=== PATIENT | female | born 1960 | race African-American/Black ===

== ENCOUNTER 2021-05-13 01:17 | Inpatient (IN) ==
[2021-05-13] MEDS ORDERED: ONDANSETRON 4 MG/2 ML VIAL IV STA (02:12)
[2021-05-13 02:41] LABS: Hemoglobin 15.2 GM/DL (12.0-16.0); Immature Granulocytes % 0.2 %; Immature Granulocytes Absolute 0.01 #; Lymphocytes # 0.9 10*3/uL (1.4-4.0); Lymphocytes % 14.5 % (21.3-54.2); Mean Corpuscular Volume 84.4 FL (87-102); Mean Platelet Volume 12.9 FL (9.6-12.0); Monocytes % 7.7 % (1.7-12.7); NRBC # 0.03 10*3/uL; Neutrophils % 77.6 % (38.7-73.9); Platelet Count 155 T/CUMM (130-400); Red Blood Count 5.45 MC/CUMM (3.8-5.5); Red Cell Distribution Width 16.9 % (9.3-17.3); White Blood Count 5.9 T/CUMM (4-12)
[2021-05-13 02:52] LABS: Bilirubin,Urine Negative (Negative); Blood, Urine Negative (Negative); Glucose,Urine (UA) Negative (Negative); Hyaline Casts,Urine 13 /LPF (0-3); Ketones,Urine Negative (Negative); Mucus,Urine Occasional /LPF (Occasional); Nitrite,Urine Negative (Negative); Protein,Urine 100 MG/DL; RBC,Urine 1 /HPF (0-4); Squamous Epithelial Cell,Urine Occasional /HPF (0-10); Urine Appearance Slightly Hazy (Clear); Urine Color Yellow (Yellow); Urine Specific Gravity 1.018 (1.001-1.035)
[2021-05-13 03:01] LABS: Bilirubin,Total 0.8 MG/DL (0.20-1.00); Calcium 9.3 MG/DL (8.5-10.1); Potassium 5.2 MMOL/L (3.5-5.1); Total Protein 7.3 G/DL (6.4-8.2)
[2021-05-13] MEDS ORDERED: SODIUM CHLORIDE 0.9% 500 ML IV STA (03:06)
[2021-05-13] MEDS ORDERED: FUROSEMIDE 40 MG/4 ML VIAL IV STA (03:26)
[2021-05-13] MEDS ORDERED: ACETAMINOPHEN 325 MG TABLET PO PRN (04:29)
[2021-05-13] MEDS ORDERED: GLUCAGON 1 MG VIAL IM PRN (04:29)
[2021-05-13] MEDS ORDERED: MORPHINE 2 MG/1 ML SYRINGE IV PRN (04:29)
[2021-05-13] MEDS ORDERED: DEXTROSE 50% 25 GM/50 ML VIAL IV PRN (04:29)
[2021-05-13] MEDS ORDERED: hydrALAZINE 20 MG/1 ML VIAL IV PRN (04:29)
[2021-05-13] MEDS ORDERED: CALCIUM CARBONATE CHEW 500 MG TABLET PO PRN (04:29)
[2021-05-13] MEDS ORDERED: diphenhydrAMINE CAP 25 MG CAPSULE PO PRN (04:29)
[2021-05-13] MEDS ORDERED: SODIUM CHLORIDE 0.9% 1,000 ML IV SCH (06:30)
[2021-05-13] MEDS ORDERED: ENOXAPARIN 60 MG/0.6 ML SYRINGE SUBCUT STA (07:30)
[2021-05-13] MEDS ORDERED: NITROGLYCERIN SL 0.4 MG TABLET SL PRN (08:33)
[2021-05-13] MEDS ORDERED: ASCORBIC ACID 500 MG TABLET PO SCH (09:00)
[2021-05-13] MEDS ORDERED: CLOPIDOGREL 75 MG TABLET PO SCH (09:00)
[2021-05-13] MEDS ORDERED: CLOPIDOGREL 75 MG TABLET ONE (09:47)
[2021-05-13] MEDS: ASPIRIN EC 81 MG TABLET PO SCH (09:50)
[2021-05-13] MEDS: ONDANSETRON 4 MG/2 ML VIAL IV PRN (10:05)
[2021-05-13] MEDS: METOPROLOL TARTRATE 25 MG TABLET PO SCH ×2 (10:13→22:53)
[2021-05-13] MEDS ORDERED: SODIUM CHLORIDE 0.9% 250 ML IV ONE (10:39)
[2021-05-13] MEDS: PROMETHAZINE 25 MG/1 ML VIAL IM PRN (12:45)
[2021-05-13] MEDS ORDERED: SODIUM CHLORIDE 0.9% 250 ML IV STA (15:06)
[2021-05-13] MEDS: metroNIDAZOLE INJ 500 MG/100 ML PREMIX IV SCH ×2 (18:05→19:05)
[2021-05-13] MEDS: VANCOMYCIN 50 MG/ML 60 ML/BOTTLE PO SCH (18:06)
[2021-05-13] MEDS: ATORVASTATIN 40 MG TABLET PO SCH (22:53)
[2021-05-13] MEDS: ESCITALOPRAM 10 MG TABLET PO SCH (22:53)
[2021-05-13] MEDS: APIXABAN 2.5 MG TABLET PO SCH (22:53)
[2021-05-13] MEDS: ASCORBIC ACID 500 MG TABLET PO SCH ×2 (22:54→23:00)
[2021-05-14] MEDS: PROMETHAZINE 25 MG/1 ML VIAL IM PRN ×2 (00:20→05:00)
[2021-05-14] MEDS: VANCOMYCIN 50 MG/ML 60 ML/BOTTLE PO SCH ×4 (01:00→17:31)
[2021-05-14] MEDS ORDERED: HYOSCYAMINE 0.125 MG TABLET PO ONE (02:47)
[2021-05-14 05:01] LABS: Basophils % 0.1 % (0.0-0.8); Eosinophils % 0.1 % (0.00-10.9); Hematocrit 46.4 VOL% (35.7-47.0); Hemoglobin 14.9 GM/DL (12.0-16.0); Immature Granulocytes % 0.8 %; Immature Granulocytes Absolute 0.06 #; Lymphocytes % 26.3 % (21.3-54.2); Mean Corpuscular HGB Conc 32.1 GM/DL (32-36); Mean Corpuscular Volume 83.8 FL (87-102); Mean Platelet Volume 13.2 FL (9.6-12.0); NRBC # 0.04 10*3/uL; Neutrophils % 58.7 % (38.7-73.9); Platelet Count 139 T/CUMM (130-400); Red Blood Count 5.54 MC/CUMM (3.8-5.5); Red Cell Distribution Width 16.5 % (9.3-17.3); White Blood Count 7.6 T/CUMM (4-12)
[2021-05-14 05:27] LABS: Albumin 3.6 G/DL (3.4-5.0); Bilirubin,Total 0.9 MG/DL (0.20-1.00); Calcium 8.2 MG/DL (8.5-10.1); Potassium 4.7 MMOL/L (3.5-5.1); Total Protein 6.5 G/DL (6.4-8.2)
[2021-05-14 05:30] LABS: Acanthocytes Few; Hypochromasia 1+; Microcytosis 1+; Ovalocytes Slight
[2021-05-14 05:31] LABS: Platelet Estimate Adequate
[2021-05-14 05:40] LABS: Risk Ratio 2.07; VLDL Cholesterol 15.4 MG/DL
[2021-05-14 05:46] LABS: Calcium 8.2 MG/DL (8.5-10.1); Potassium 4.7 MMOL/L (3.5-5.1)
[2021-05-14] MEDS ORDERED: SODIUM CHLORIDE 0.9% 1,000 ML IV SCH (08:00)
[2021-05-14] MEDS: metroNIDAZOLE INJ 500 MG/100 ML PREMIX IV SCH ×2 (09:43→16:51)
[2021-05-14] MEDS: ASCORBIC ACID 500 MG TABLET PO SCH ×2 (09:44→22:17)
[2021-05-14] MEDS: METOPROLOL TARTRATE 25 MG TABLET PO SCH ×2 (09:44→22:17)
[2021-05-14] MEDS: ASPIRIN EC 81 MG TABLET PO SCH (09:44)
[2021-05-14] MEDS: APIXABAN 2.5 MG TABLET PO SCH ×2 (09:44→22:18)
[2021-05-14] MEDS: PROMETHAZINE INJ 12.5 MG in SODIUM CHLORIDE 0.9% 50 ML IV PRN ×2 (12:41→22:22)
[2021-05-14] MEDS ORDERED: SODIUM CHLORIDE 0.9% 500 ML IV ONE (17:58)
[2021-05-14] MEDS ORDERED: SCOPOLAMINE 1.5 MG PATCH TRANSDERM ONE (20:48)
[2021-05-14] MEDS: ESCITALOPRAM 10 MG TABLET PO SCH (22:18)
[2021-05-14] MEDS: ATORVASTATIN 40 MG TABLET PO SCH (22:18)
[2021-05-15] MEDS: VANCOMYCIN 50 MG/ML 60 ML/BOTTLE PO SCH ×4 (00:31→17:27)
[2021-05-15] MEDS: metroNIDAZOLE INJ 500 MG/100 ML PREMIX IV SCH ×3 (00:32→17:24)
[2021-05-15 03:07] LABS: Basophils % 0.3 % (0.0-0.8); Eosinophils % 0.1 % (0.00-10.9); Hematocrit 50.3 VOL% (35.7-47.0); Hemoglobin 15.5 GM/DL (12.0-16.0); Immature Granulocytes % 1.1 %; Lymphocytes # 2.3 10*3/uL (1.4-4.0); Lymphocytes % 25.4 % (21.3-54.2); Mean Corpuscular HGB Conc 30.8 GM/DL (32-36); Mean Corpuscular Volume 88.7 FL (87-102); Mean Platelet Volume 12.6 FL (9.6-12.0); Monocytes % 18.3 % (1.7-12.7); NRBC # 0.14 10*3/uL; Neutrophils % 54.8 % (38.7-73.9); Platelet Count 157 T/CUMM (130-400); Red Blood Count 5.67 MC/CUMM (3.8-5.5); Red Cell Distribution Width 17.5 % (9.3-17.3); White Blood Count 8.9 T/CUMM (4-12)
[2021-05-15 03:24] LABS: Calcium 8.3 MG/DL (8.5-10.1); Osmolality,Calculated 278.1 MOS/KG (273-304)
[2021-05-15 03:31] LABS: Albumin 3.5 G/DL (3.4-5.0); Bilirubin,Direct 0.73 MG/DL (0.0-0.20); Bilirubin,Indirect 0.8 MG/DL (0.0-1.0); Bilirubin,Total 1.5 MG/DL (0.20-1.00); Total Protein 6.9 G/DL (6.4-8.2)
[2021-05-15 03:53] LABS: Lymphocytes 28 % (20-55); Segmented Neutrophils 61 % (50-85); Total Cells Counted 100
[2021-05-15 03:54] LABS: Platelet Estimate Normal
[2021-05-15] MEDS: PROMETHAZINE INJ 12.5 MG in SODIUM CHLORIDE 0.9% 50 ML IV PRN ×3 (08:28→20:40)
[2021-05-15] MEDS: LACTATED RINGERS 1,000 ML IV SCH ×2 (08:30→17:27)
[2021-05-15] MEDS: METOPROLOL TARTRATE 25 MG TABLET PO SCH (09:33)
[2021-05-15] MEDS: APIXABAN 2.5 MG TABLET PO SCH ×2 (09:33→20:27)
[2021-05-15] MEDS: ASPIRIN EC 81 MG TABLET PO SCH (09:33)
[2021-05-15] MEDS: ASCORBIC ACID 500 MG TABLET PO SCH ×2 (09:33→20:26)
[2021-05-15] MEDS ORDERED: CLORAZEPATE 3.75 MG TABLET PO PRN (09:37)
[2021-05-15] MEDS ORDERED: METOPROLOL TARTRATE 5 MG/5 ML VIAL IV ONE (09:40)
[2021-05-15] MEDS: METOPROLOL TARTRATE 50 MG TABLET PO SCH (20:27)
[2021-05-15] MEDS: ESCITALOPRAM 10 MG TABLET PO SCH (20:27)
[2021-05-15] MEDS ORDERED: FUROSEMIDE 20 MG/2 ML VIAL IV ONE (21:51)
[2021-05-16 00:10] LABS: Bilirubin,Urine Negative (Negative); Blood, Urine Small mg/dL (Negative); Glucose,Urine (UA) Negative (Negative); Granular Casts,Urine 3 /LPF (0-1); Hyaline Casts,Urine 24 /LPF (0-3); Ketones,Urine 5 mg/dL (Negative); Mucus,Urine Occasional /LPF (Occasional); Nitrite,Urine Negative (Negative); Protein,Urine 100 MG/DL; RBC,Urine 37 /HPF (0-4); Squamous Epithelial Cell,Urine Occasional /HPF (0-10); Urine Appearance CLEAR (Clear); Urine Color Amber (Yellow); Urine Specific Gravity 1.024 (1.001-1.035); Urine Urobilinogen < 2.0 EU/DL (0.2-1.0)
[2021-05-16] MEDS: VANCOMYCIN 50 MG/ML 60 ML/BOTTLE PO SCH ×4 (01:06→17:42)
[2021-05-16] MEDS: metroNIDAZOLE INJ 500 MG/100 ML PREMIX IV SCH ×2 (01:43→10:05)
[2021-05-16] MEDS: PROMETHAZINE INJ 12.5 MG in SODIUM CHLORIDE 0.9% 50 ML IV PRN ×2 (04:16→10:33)
[2021-05-16 04:30] LABS: Basophils % 0.1 % (0.0-0.8); Hematocrit 49.2 VOL% (35.7-47.0); Hemoglobin 15.4 GM/DL (12.0-16.0); Immature Granulocytes % 1.2 %; Immature Granulocytes Absolute 0.12 #; Lymphocytes # 1.5 10*3/uL (1.4-4.0); Lymphocytes % 15.4 % (21.3-54.2); Mean Corpuscular HGB Conc 31.3 GM/DL (32-36); Mean Corpuscular Volume 85.4 FL (87-102); Monocytes % 8.8 % (1.7-12.7); NRBC # 0.53 10*3/uL; Neutrophils % 74.5 % (38.7-73.9); Platelet Count 188 T/CUMM (130-400); Red Blood Count 5.76 MC/CUMM (3.8-5.5); Red Cell Distribution Width 17.8 % (9.3-17.3)
[2021-05-16 04:49] LABS: Calcium 8.9 MG/DL (8.5-10.1); Osmolality,Calculated 285.7 MOS/KG (273-304)
[2021-05-16] MEDS: LACTATED RINGERS 1,000 ML IV SCH ×2 (05:19→13:24)
[2021-05-16] MEDS: METOPROLOL TARTRATE 50 MG TABLET PO SCH ×2 (08:57→21:50)
[2021-05-16] MEDS: APIXABAN 2.5 MG TABLET PO SCH ×2 (08:57→21:50)
[2021-05-16] MEDS: ASPIRIN EC 81 MG TABLET PO SCH (08:57)
[2021-05-16] MEDS: ASCORBIC ACID 500 MG TABLET PO SCH ×2 (08:57→21:49)
[2021-05-16] MEDS ORDERED: FUROSEMIDE 40 MG/4 ML VIAL IV ONE (13:02)
[2021-05-16] MEDS: ESCITALOPRAM 10 MG TABLET PO SCH (21:49)
[2021-05-17] MEDS: LACTATED RINGERS 1,000 ML IV SCH (01:30)
[2021-05-17] MEDS: VANCOMYCIN 50 MG/ML 60 ML/BOTTLE PO SCH ×4 (01:30→22:34)
[2021-05-17 06:36] LABS: Basophils % 0.1 % (0.0-0.8); Hematocrit 50.1 VOL% (35.7-47.0); Hemoglobin 15.8 GM/DL (12.0-16.0); Immature Granulocytes Absolute 0.18 #; Lymphocytes # 1.7 10*3/uL (1.4-4.0); Lymphocytes % 9.2 % (21.3-54.2); Mean Corpuscular HGB Conc 31.5 GM/DL (32-36); Mean Corpuscular Volume 86.7 FL (87-102); Mean Platelet Volume 12.7 FL (9.6-12.0); Monocytes % 8.7 % (1.7-12.7); NRBC # 1.28 10*3/uL; Platelet Count 186 T/CUMM (130-400); Red Blood Count 5.78 MC/CUMM (3.8-5.5); Red Cell Distribution Width 18.6 % (9.3-17.3); White Blood Count 17.9 T/CUMM (4-12)
[2021-05-17 07:14] LABS: Calcium 8.8 MG/DL (8.5-10.1); Osmolality,Calculated 291.7 MOS/KG (273-304); Potassium 5.3 MMOL/L (3.5-5.1)
[2021-05-17] MEDS: ASPIRIN EC 81 MG TABLET PO SCH (08:25)
[2021-05-17] MEDS: ASCORBIC ACID 500 MG TABLET PO SCH ×2 (08:25→22:31)
[2021-05-17] MEDS: APIXABAN 2.5 MG TABLET PO SCH ×2 (08:25→22:32)
[2021-05-17] MEDS: METOPROLOL TARTRATE 50 MG TABLET PO SCH ×2 (08:26→22:31)
[2021-05-17] MEDS: ONDANSETRON 4 MG/2 ML VIAL IV PRN ×2 (08:30→21:06)
[2021-05-17 09:39] LABS: Albumin 3.9 G/DL (3.4-5.0); Bilirubin,Direct 0.89 MG/DL (0.0-0.20); Bilirubin,Indirect 0.7 MG/DL (0.0-1.0); Bilirubin,Total 1.6 MG/DL (0.20-1.00)
[2021-05-17] MEDS: DOBUTamine 500 MG/250 ML PREMIX IV SCH (11:58)
[2021-05-17] MEDS: FUROSEMIDE 40 MG TABLET PO SCH (11:59)
[2021-05-17] MEDS: metOLazone 2.5 MG TABLET PO SCH (11:59)
[2021-05-17 13:55] LABS: Calcium 8.8 MG/DL (8.5-10.1); Ferritin 4054.1 ng/ml (8-252); Potassium 5.6 MMOL/L (3.5-5.1)
[2021-05-17 15:00] LABS: Hepatitis B Core IgM Quant 0.14 Index; Hepatitis B Surface Ag Quant < 0.10 Index; Hepatitis B Surface Ag Result Non-Reactive (NonReactive); Hepatitis C Virus Ab Quant 0.05 Index; Hepatitis C Virus Ab Result Non-Reactive (NonReactive)
[2021-05-17] MEDS: ESCITALOPRAM 10 MG TABLET PO SCH (22:32)
[2021-05-18] MEDS: VANCOMYCIN 50 MG/ML 60 ML/BOTTLE PO SCH ×4 (01:27→17:46)
[2021-05-18 04:26] LABS: Basophils % 0.1 % (0.0-0.8); Eosinophils % 0.1 % (0.00-10.9); Hematocrit 42.9 VOL% (35.7-47.0); Immature Granulocytes % 0.6 %; Immature Granulocytes Absolute 0.08 #; Lymphocytes # 1.1 10*3/uL (1.4-4.0); Lymphocytes % 8.7 % (21.3-54.2); Mean Corpuscular HGB Conc 32.6 GM/DL (32-36); Mean Corpuscular Volume 84.6 FL (87-102); Monocytes % 7.8 % (1.7-12.7); NRBC # 0.76 10*3/uL; Neutrophils % 82.7 % (38.7-73.9); Platelet Count 165 T/CUMM (130-400); Red Blood Count 5.07 MC/CUMM (3.8-5.5); White Blood Count 12.9 T/CUMM (4-12)
[2021-05-18 04:44] LABS: Calcium 8.6 MG/DL (8.5-10.1); Osmolality,Calculated 295.5 MOS/KG (273-304); Potassium 3.9 MMOL/L (3.5-5.1)
[2021-05-18 04:58] LABS: Albumin 3.5 G/DL (3.4-5.0); Bilirubin,Direct 0.75 MG/DL (0.0-0.20); Bilirubin,Indirect 0.6 MG/DL (0.0-1.0); Bilirubin,Total 1.3 MG/DL (0.20-1.00)
[2021-05-18] MEDS: ASPIRIN EC 81 MG TABLET PO SCH (08:24)
[2021-05-18] MEDS: FUROSEMIDE 40 MG TABLET PO SCH (08:25)
[2021-05-18] MEDS: ASCORBIC ACID 500 MG TABLET PO SCH ×2 (08:25→21:57)
[2021-05-18] MEDS: metOLazone 2.5 MG TABLET PO SCH (08:25)
[2021-05-18] MEDS: APIXABAN 2.5 MG TABLET PO SCH ×2 (08:25→21:57)
[2021-05-18] MEDS: METOPROLOL TARTRATE 50 MG TABLET PO SCH ×2 (08:25→21:57)
[2021-05-18] MEDS: DOBUTamine 500 MG/250 ML PREMIX IV SCH (12:50)
[2021-05-18] MEDS: ESCITALOPRAM 10 MG TABLET PO SCH (21:57)
[2021-05-19] MEDS: VANCOMYCIN 50 MG/ML 60 ML/BOTTLE PO SCH ×4 (01:06→17:01)
[2021-05-19 07:36] LABS: Basophils % 0.1 % (0.0-0.8); Eosinophils # 0.1 10*3/uL (0.0-0.87); Eosinophils % 0.8 % (0.00-10.9); Hematocrit 41.3 VOL% (35.7-47.0); Hemoglobin 13.6 GM/DL (12.0-16.0); Immature Granulocytes % 0.9 %; Immature Granulocytes Absolute 0.08 #; Lymphocytes # 0.9 10*3/uL (1.4-4.0); Lymphocytes % 9.6 % (21.3-54.2); Mean Corpuscular HGB Conc 32.9 GM/DL (32-36); Mean Corpuscular Volume 82.8 FL (87-102); Monocytes % 7.9 % (1.7-12.7); NRBC # 0.19 10*3/uL; Neutrophils % 80.7 % (38.7-73.9); Platelet Count 137 T/CUMM (130-400); Red Blood Count 4.99 MC/CUMM (3.8-5.5); Red Cell Distribution Width 18.3 % (9.3-17.3); White Blood Count 8.9 T/CUMM (4-12)
[2021-05-19 07:53] LABS: Albumin 3.1 G/DL (3.4-5.0); Bilirubin,Direct 0.84 MG/DL (0.0-0.20); Bilirubin,Total 1.8 MG/DL (0.20-1.00); Calcium 8.7 MG/DL (8.5-10.1); Osmolality,Calculated 282.8 MOS/KG (273-304); Potassium 3.1 MMOL/L (3.5-5.1); Total Protein 5.7 G/DL (6.4-8.2)
[2021-05-19] MEDS: ASPIRIN EC 81 MG TABLET PO SCH (08:49)
[2021-05-19] MEDS: METOPROLOL TARTRATE 50 MG TABLET PO SCH ×2 (08:49→11:09)
[2021-05-19] MEDS: ASCORBIC ACID 500 MG TABLET PO SCH ×2 (08:49→21:15)
[2021-05-19] MEDS: APIXABAN 2.5 MG TABLET PO SCH ×2 (08:50→21:15)
[2021-05-19] MEDS: FUROSEMIDE 40 MG TABLET PO SCH (08:52)
[2021-05-19] MEDS: DOBUTamine 500 MG/250 ML PREMIX IV SCH (10:54)
[2021-05-19] MEDS ORDERED: POTASSIUM CHLORIDE 20 MEQ TABLET PO ONE (11:11)
[2021-05-19] MEDS: metOLazone 2.5 MG TABLET PO SCH (13:06)
[2021-05-19] MEDS: SPIRONOLACTONE 50 MG TABLET PO SCH (13:06)
[2021-05-19] MEDS: ESCITALOPRAM 10 MG TABLET PO SCH (21:15)
[2021-05-19] MEDS: METOPROLOL TARTRATE 25 MG TABLET PO SCH (21:15)
[2021-05-20] MEDS: VANCOMYCIN 50 MG/ML 60 ML/BOTTLE PO SCH ×3 (00:29→11:34)
[2021-05-20 04:14] LABS: Eosinophils # 0.1 10*3/uL (0.0-0.87); Eosinophils % 1.1 % (0.00-10.9); Hematocrit 44.2 VOL% (35.7-47.0); Hemoglobin 14.2 GM/DL (12.0-16.0); Immature Granulocytes % 0.5 %; Immature Granulocytes Absolute 0.04 #; Lymphocytes % 13.1 % (21.3-54.2); Mean Corpuscular HGB Conc 32.1 GM/DL (32-36); Mean Corpuscular Volume 84.8 FL (87-102); Mean Platelet Volume 12.5 FL (9.6-12.0); Monocytes % 10.7 % (1.7-12.7); NRBC # 0.07 10*3/uL; Neutrophils % 74.6 % (38.7-73.9); Platelet Count 128 T/CUMM (130-400); Red Blood Count 5.21 MC/CUMM (3.8-5.5); Red Cell Distribution Width 18.2 % (9.3-17.3); White Blood Count 7.4 T/CUMM (4-12)
[2021-05-20 04:31] LABS: Hypochromasia 1+; Microcytosis 1+; Ovalocytes Few; Polychromasia Slight
[2021-05-20 04:32] LABS: Platelet Estimate Adequate
[2021-05-20 04:40] LABS: Albumin 3.1 G/DL (3.4-5.0); Bilirubin,Direct 0.87 MG/DL (0.0-0.20); Bilirubin,Indirect 1.1 MG/DL (0.0-1.0); Calcium 8.7 MG/DL (8.5-10.1); Osmolality,Calculated 281.7 MOS/KG (273-304); Potassium 3.7 MMOL/L (3.5-5.1)
[2021-05-20] MEDS: SPIRONOLACTONE 50 MG TABLET PO SCH (09:22)
[2021-05-20] MEDS: APIXABAN 2.5 MG TABLET PO SCH (09:22)
[2021-05-20] MEDS: FUROSEMIDE 40 MG TABLET PO SCH (09:22)
[2021-05-20] MEDS: metOLazone 2.5 MG TABLET PO SCH (09:22)
[2021-05-20] MEDS: ASPIRIN EC 81 MG TABLET PO SCH (09:22)
[2021-05-20] MEDS: ASCORBIC ACID 500 MG TABLET PO SCH (09:23)
[2021-05-20] MEDS: METOPROLOL TARTRATE 25 MG TABLET PO SCH (09:23)
[2021-05-20] MEDS: DOBUTamine 500 MG/250 ML PREMIX IV SCH (09:26)
[2021-05-20 13:14] VITALS: BP 101/68
== END 2021-05-20 14:57 | disposition home health service (06) | DRG 371 ==
LOC: SUATTDRO → N.ED 01:17 → SUATTDRO 07:31 → N.EDINP 07:31 → N.TELEN 17:00
PROVIDERS: ADMIT Internal Medicine Geriatric Medicine; ATTEND Internal Medicine

== ENCOUNTER 2021-12-22 06:56 | Inpatient (IN) ==
[2021-12-22] MEDS ORDERED: FUROSEMIDE 100 MG/10 ML VIAL IV STA (07:18)
[2021-12-22 07:40] LABS: Basophils # 0.1 10*3/uL (0.0-0.2); Basophils % 0.4 % (0.0-0.8); Eosinophils % 0.1 % (0.00-10.9); Hematocrit 55.4 VOL% (35.7-47.0); Hemoglobin 17.5 GM/DL (12.0-16.0); Immature Granulocytes % 1.1 %; Immature Granulocytes Absolute 0.19 #; Lymphocytes # 2.5 10*3/uL (1.4-4.0); Lymphocytes % 13.9 % (21.3-54.2); Mean Corpuscular HGB Conc 31.6 GM/DL (32-36); Mean Corpuscular Volume 85.9 FL (87-102); Mean Platelet Volume 13.4 FL (9.6-12.0); Monocytes % 5.8 % (1.7-12.7); NRBC # 0.04 10*3/uL; Neutrophils % 78.7 % (38.7-73.9); Platelet Count 172 T/CUMM (130-400); Red Blood Count 6.45 MC/CUMM (3.8-5.5)
[2021-12-22 09:39] LABS: Calcium 9.8 MG/DL (8.5-10.1); Osmolality,Calculated 278.2 MOS/KG (273-304); Total Protein 7.9 G/DL (6.4-8.2)
[2021-12-22] MEDS ORDERED: DEXTROSE 50% 25 GM/50 ML VIAL IV STA (09:44)
[2021-12-22] MEDS ORDERED: DEXTROSE 10% 250 ML IV ONE (09:56)
[2021-12-22] MEDS ORDERED: DEXTROSE 10% 250 ML BAG IV PRN (10:19)
[2021-12-22 11:06] LABS: Hyaline Casts,Urine 27 /LPF (0-3); Mucus,Urine Occasional /LPF (Occasional); RBC,Urine 147 /HPF (0-4); Squamous Epithelial Cell,Urine Few /HPF (0-10)
[2021-12-22 11:09] LABS: Urine Appearance Clear (Clear); Urine Color Yellow (Yellow); Urine pH 5.5 (4.5-8.0)
[2021-12-22 11:10] LABS: Glucose,Urine (UA) Negative (Negative); Protein,Urine 100 MG/DL; Urine Specific Gravity 1.012 (1.001-1.035)
[2021-12-22 11:11] LABS: Bilirubin,Urine Negative (Negative); Blood, Urine Large mg/dL (Negative); Ketones,Urine Negative (Negative); Nitrite,Urine Negative (Negative); Urine Urobilinogen 0.2 EU/DL (<2.0)
[2021-12-22] MEDS ORDERED: DEXTROSE 50% 25 GM/50 ML VIAL IV PRN (11:39)
[2021-12-22] MEDS ORDERED: ZALEPLON 5 MG CAPSULE PO PRN (11:39)
[2021-12-22] MEDS ORDERED: GLUCAGON 1 MG VIAL IM PRN (11:39)
[2021-12-22] MEDS ORDERED: SODIUM BICARBONATE 50 MEQ/50 ML VIAL IV ONE (11:45)
[2021-12-22 11:52] LABS: Arterial Base Excess iSTAT -9 MMOL/L (-2.5-2.5); Arterial Bicarbonate iSTAT 14.9 MMOL/L (20-26); Arterial O2 Saturation iSTAT 98 % (95-100); Arterial PCO2 iSTAT 27 MM HG (35-48); Arterial PO2 iSTAT 107 MM HG (80-95); Arterial Total CO2 iSTAT 16 MMO/L (23-27); Arterial pH iSTAT 7.352 (7.35-7.45)
[2021-12-22] MEDS ORDERED: MORPHINE 4 MG/1 ML VIAL IV PRN (11:54)
[2021-12-22 12:40] LABS: INR 2.2; PT Patient Result 23.5 SECS (10.5-12.0)
[2021-12-22] MEDS ORDERED: AZITHROMYCIN INJ 500 MG in SODIUM CHLORIDE 0.9% 250 ML IV ONE (13:00)
[2021-12-22] MEDS ORDERED: CLORAZEPATE 3.75 MG TABLET PO PRN (13:26)
[2021-12-22] MEDS ORDERED: SODIUM BICARB INJ 50 MEQ in DEXTROSE 5% 1,000 ML IV SCH (14:00)
[2021-12-22] MEDS: ALBUTEROL/IPRATROPIUM 3 ML NEB RESP TX SCH ×2 (14:34→20:28)
[2021-12-22] MEDS ORDERED: NALOXONE 0.4 MG/ML VIAL ONE (16:50)
[2021-12-22] MEDS ORDERED: NALOXONE 0.4 MG/ML VIAL IV ONE (16:51)
[2021-12-22] MEDS ORDERED: NOREPINEPHRINE 4 MG/4 ML VIAL IV ONE ×2 (17:06→17:07)
[2021-12-22] MEDS ORDERED: VANCOMYCIN 1,000 MG VIAL ONE (17:11)
[2021-12-22] MEDS ORDERED: PIPERACILLIN/TAZOBACTAM 3,375 MG VIAL IV ONE (17:11)
[2021-12-22] MEDS ORDERED: EPINEPHrine 1 MG/10 ML SYRINGE IV ONE (17:14)
[2021-12-22] MEDS ORDERED: DOPamine 800 MG/250 ML PREMIX IV ONE (17:19)
[2021-12-22] MEDS ORDERED: SODIUM BICARBONATE 50 MEQ/50 ML SYRINGE IV ONE (17:40)
[2021-12-22 17:49] LABS: Arterial Base Excess iSTAT -16 MMOL/L (-2.5-2.5); Arterial Bicarbonate iSTAT 12.7 MMOL/L (20-26); Arterial O2 Saturation iSTAT 98 % (95-100); Arterial PCO2 iSTAT 41 MM HG (35-48); Arterial PO2 iSTAT 133 MM HG (80-95); Arterial Total CO2 iSTAT 14 MMO/L (23-27); Arterial pH iSTAT 7.105 (7.35-7.45)
[2021-12-22] MEDS ORDERED: ROCURONIUM 100 MG/10 ML VIAL IV ONE (18:17)
[2021-12-22] MEDS ORDERED: METOPROLOL TARTRATE 5 MG/5 ML VIAL IV ONE (20:19)
[2021-12-22 20:32] LABS: ABG Base Excess -6.9 MMOL/L (-2.5-2.5); ABG Oxygen Saturation 99.1 % (95-100); ABG TCO2 15.5 MMOL/L (23-27)
[2021-12-22 20:33] LABS: Basophils % 0.2 % (0.0-0.8); Eosinophils % 0.1 % (0.00-10.9); Hematocrit 51.1 VOL% (35.7-47.0); Hemoglobin 16.7 GM/DL (12.0-16.0); Immature Granulocytes % 1.3 %; Immature Granulocytes Absolute 0.19 #; Lymphocytes # 1.8 10*3/uL (1.4-4.0); Lymphocytes % 12.1 % (21.3-54.2); Mean Corpuscular HGB Conc 32.7 GM/DL (32-36); Mean Corpuscular Volume 82.3 FL (87-102); Mean Platelet Volume 12.6 FL (9.6-12.0); Monocytes % 6.7 % (1.7-12.7); NRBC # 0.09 10*3/uL; Neutrophils % 79.6 % (38.7-73.9); Platelet Count 183 T/CUMM (130-400); Red Blood Count 6.21 MC/CUMM (3.8-5.5); Red Cell Distribution Width 15.5 % (9.3-17.3); White Blood Count 15.1 T/CUMM (4-12)
[2021-12-22] MEDS: fentaNYL INJ 1,250 MCG in SODIUM CHLORIDE 0.9% 225 ML IV PRN (20:44)
[2021-12-22] MEDS: MIDAZOLAM 100 MG in SODIUM CHLORIDE 0.9% 80 ML IV PRN (20:44)
[2021-12-22] MEDS ORDERED: PROMETHAZINE 25 MG TABLET PO SCH (21:00)
[2021-12-22 21:06] LABS: Alanine Aminotransferase 264 U/L (13-56); Albumin 3.5 G/DL (3.4-5.0); Alkaline Phosphatase 116 U/L (45-117); Aspartate Amino Transferase 514 U/L (0-37); Blood Urea Nitrogen 57 MG/DL (7-18); CKMB % 4.1 %; Calcium 8.4 MG/DL (8.5-10.1); Carbon Dioxide 18 MMOL/L (21-32); Estimated Glom Filtration Rate 19 ML/MIN; Glucose 121 MG/DL (74-106); Osmolality,Calculated 284.2 MOS/KG (273-304); Potassium 5.2 MMOL/L (3.5-5.1); Sodium 134 MMOL/L (136-145); Total Protein 7.5 G/DL (6.4-8.2)
[2021-12-22] MEDS ORDERED: LORazepam 2 MG/1 ML VIAL ONE (21:07)
[2021-12-22] MEDS: LORazepam 2 MG/1 ML VIAL IV PRN (21:08)
[2021-12-22] MEDS: CISATRACURIUM 10 MG/5 ML VIAL IV PRN (21:16)
[2021-12-22] MEDS: METOPROLOL TARTRATE 25 MG TABLET PO SCH (21:50)
[2021-12-22] MEDS: APIXABAN 2.5 MG TABLET PO SCH (21:50)
[2021-12-22] MEDS: ASCORBIC ACID 500 MG TABLET PO SCH (21:51)
[2021-12-22 22:14] LABS: ABG Oxygen Saturation 99.9 % (95-100); ABG PCO2 32.8 MM HG (35-48); ABG PH 7.407 (7.35-7.45); ABG TCO2 17.2 MMOL/L (23-27)
[2021-12-23] MEDS: ALBUTEROL/IPRATROPIUM 3 ML NEB RESP TX SCH ×4 (00:40→20:00)
[2021-12-23 01:46] LABS: Basophils % 0.2 % (0.0-0.8); Eosinophils % 0.1 % (0.00-10.9); Hematocrit 47.4 VOL% (35.7-47.0); Hemoglobin 15.8 GM/DL (12.0-16.0); Immature Granulocytes Absolute 0.11 #; Lymphocytes # 1.1 10*3/uL (1.4-4.0); Lymphocytes % 9.6 % (21.3-54.2); Mean Corpuscular HGB Conc 33.3 GM/DL (32-36); Mean Corpuscular Volume 80.6 FL (87-102); Mean Platelet Volume 12.9 FL (9.6-12.0); Monocytes % 4.3 % (1.7-12.7); NRBC # 0.04 10*3/uL; Neutrophils % 84.8 % (38.7-73.9); Platelet Count 152 T/CUMM (130-400); Red Blood Count 5.88 MC/CUMM (3.8-5.5)
[2021-12-23] MEDS: cefTRIAXone 1,000 MG in SODIUM CHLORIDE 0.9% 100 ML IV SCH (01:56)
[2021-12-23 02:04] LABS: INR 2.5; PT Patient Result 25.9 SECS (10.5-12.0); Partial Thromboplastin Time 38.4 SECS (23.8-32.1)
[2021-12-23 02:15] LABS: Bilirubin,Total 1.8 MG/DL (0.20-1.00); CKMB % 4.8 %; Calcium 8.3 MG/DL (8.5-10.1); Potassium 3.4 MMOL/L (3.5-5.1); Total Protein 6.6 G/DL (6.4-8.2)
[2021-12-23] MEDS ORDERED: POTASSIUM CHLORIDE RIDER 20 MEQ/100 ML PREMIX IV ONE (02:41)
[2021-12-23] MEDS: LORazepam 2 MG/1 ML VIAL IV PRN (03:43)
[2021-12-23 04:07] LABS: ABG Base Excess -2.4 MMOL/L (-2.5-2.5); ABG HCO3 21.5 MMOL/L (20-26); ABG PCO2 34.7 MM HG (35-48); ABG PH 7.409 (7.35-7.45); ABG PO2 468.7 MM HG (80-95); ABG TCO2 22.5 MMOL/L (23-27)
[2021-12-23] MEDS ORDERED: NOREPINEPHRINE 4 MG/4 ML VIAL IV ONE (06:00)
[2021-12-23] MEDS: fentaNYL INJ 1,250 MCG in SODIUM CHLORIDE 0.9% 225 ML IV PRN ×3 (06:13→23:18)
[2021-12-23] MEDS: NOREPINEPHRINE 8 MG in SODIUM CHLORIDE 0.9% 242 ML IV PRN ×2 (08:16→19:40)
[2021-12-23 08:34] LABS: Basophils % 0.1 % (0.0-0.8); Hematocrit 49.4 VOL% (35.7-47.0); Hemoglobin 16.3 GM/DL (12.0-16.0); Immature Granulocytes % 0.8 %; Immature Granulocytes Absolute 0.08 #; Lymphocytes # 0.7 10*3/uL (1.4-4.0); Lymphocytes % 6.5 % (21.3-54.2); Mean Corpuscular Volume 81.3 FL (87-102); Mean Platelet Volume 12.2 FL (9.6-12.0); Monocytes % 5.9 % (1.7-12.7); NRBC # 0.04 10*3/uL; Neutrophils % 86.7 % (38.7-73.9); Platelet Count 141 T/CUMM (130-400); Red Blood Count 6.08 MC/CUMM (3.8-5.5); White Blood Count 10.4 T/CUMM (4-12)
[2021-12-23 08:42] LABS: INR 2.3; PT Patient Result 24.4 SECS (10.5-12.0); Partial Thromboplastin Time 39.6 SECS (23.8-32.1)
[2021-12-23] MEDS: CISATRACURIUM 10 MG/5 ML VIAL IV PRN ×4 (08:58→19:38)
[2021-12-23 08:59] LABS: Bilirubin,Total 2.6 MG/DL (0.20-1.00); Calcium 8.2 MG/DL (8.5-10.1); Osmolality,Calculated 291.7 MOS/KG (273-304); Potassium 3.9 MMOL/L (3.5-5.1); Total Protein 6.8 G/DL (6.4-8.2)
[2021-12-23] MEDS ORDERED: ASPIRIN EC 81 MG TABLET PO SCH (09:00)
[2021-12-23] MEDS ORDERED: PANTOPRAZOLE 40 MG TABLET PO SCH (09:00)
[2021-12-23 09:10] LABS: CKMB % 4.4 %
[2021-12-23] MEDS: PANTOPRAZOLE 40 MG VIAL IV SCH (09:24)
[2021-12-23] MEDS: APIXABAN 2.5 MG TABLET PO SCH (09:24)
[2021-12-23] MEDS: AZITHROMYCIN INJ 500 MG in SODIUM CHLORIDE 0.9% 250 ML IV SCH (09:24)
[2021-12-23] MEDS: ASCORBIC ACID 500 MG TABLET PO SCH ×2 (09:49→21:12)
[2021-12-23] MEDS: DOBUTamine 500 MG/250 ML PREMIX IV PRN (09:55)
[2021-12-23 14:44] LABS: Basophils % 0.1 % (0.0-0.8); Hematocrit 44.8 VOL% (35.7-47.0); Hemoglobin 15.1 GM/DL (12.0-16.0); Immature Granulocytes % 0.8 %; Immature Granulocytes Absolute 0.06 #; Lymphocytes # 0.3 10*3/uL (1.4-4.0); Lymphocytes % 3.8 % (21.3-54.2); Mean Corpuscular HGB Conc 33.7 GM/DL (32-36); Mean Corpuscular Volume 79.2 FL (87-102); Monocytes % 5.9 % (1.7-12.7); NRBC # 0.02 10*3/uL; Neutrophils % 89.4 % (38.7-73.9); Platelet Count 135 T/CUMM (130-400); Red Blood Count 5.66 MC/CUMM (3.8-5.5); Red Cell Distribution Width 14.2 % (9.3-17.3); White Blood Count 7.8 T/CUMM (4-12)
[2021-12-23 15:00] LABS: INR 2.4; PT Patient Result 25.3 SECS (10.5-12.0); Partial Thromboplastin Time 43.9 SECS (23.8-32.1)
[2021-12-23] MEDS: MINERAL OIL/PETROLATUM OPH OINT 3.5 GM TUBE BOTH EYES SCH ×2 (15:01→21:12)
[2021-12-23 15:13] LABS: Albumin 2.7 G/DL (3.4-5.0); Bilirubin,Total 1.6 MG/DL (0.20-1.00); CKMB % 5.2 %; Calcium 8.2 MG/DL (8.5-10.1); Osmolality,Calculated 290.7 MOS/KG (273-304); Potassium 3.5 MMOL/L (3.5-5.1); Total Protein 6.1 G/DL (6.4-8.2)
[2021-12-23] MEDS: METOPROLOL TARTRATE 25 MG TABLET PO SCH (15:17)
[2021-12-23 15:18] LABS: Lymphocytes 2 % (20-55); Segmented Neutrophils 96 % (50-85); Total Cells Counted 100
[2021-12-23 15:19] LABS: Anisocytosis 1+; Burr Cells 1+; Macrocytosis Slight; Microcytosis 1+; Poikilocytosis 1+; Polychromasia 1+; Target Cells 1+
[2021-12-23 15:31] LABS: Platelet Estimate Adequate
[2021-12-23] MEDS: MAGNESIUM SULF RIDER 2 GM/50 ML PREMIX IV PRN (15:37)
[2021-12-23] MEDS ORDERED: POTASSIUM CHLORIDE RIDER 10 MEQ/100 ML PREMIX IV PRN (15:37)
[2021-12-23] MEDS ORDERED: MAGNESIUM SULF RIDER 4 GM/100 ML PREMIX IV PRN (15:37)
[2021-12-23] MEDS: POTASSIUM CHLORIDE RIDER 20 MEQ/100 ML PREMIX IV PRN (16:05)
[2021-12-23] MEDS: MIDAZOLAM 100 MG in SODIUM CHLORIDE 0.9% 80 ML IV PRN (16:55)
[2021-12-23] MEDS ORDERED: CISATRACURIUM 200 MG in SODIUM CHLORIDE 0.9% 180 ML IV PRN (19:50)
[2021-12-23] MEDS: ENOXAPARIN 60 MG/0.6 ML SYRINGE SUBCUT SCH (21:12)
[2021-12-23 21:17] LABS: Basophils % 0.1 % (0.0-0.8); Hemoglobin 15.5 GM/DL (12.0-16.0); Immature Granulocytes % 0.4 %; Immature Granulocytes Absolute 0.03 #; Lymphocytes # 0.3 10*3/uL (1.4-4.0); Lymphocytes % 4.3 % (21.3-54.2); Mean Corpuscular HGB Conc 33.7 GM/DL (32-36); Mean Platelet Volume 12.1 FL (9.6-12.0); Monocytes % 4.2 % (1.7-12.7); NRBC # 0.02 10*3/uL; Platelet Count 128 T/CUMM (130-400); Red Blood Count 5.75 MC/CUMM (3.8-5.5); Red Cell Distribution Width 14.6 % (9.3-17.3)
[2021-12-23 21:28] LABS: INR 2.1; Partial Thromboplastin Time 40.7 SECS (23.8-32.1)
[2021-12-23] MEDS ORDERED: DIGOXIN 0.5 MG/2 ML AMP IV ONE ×2 (21:32→23:00)
[2021-12-23 21:37] LABS: Albumin 2.7 G/DL (3.4-5.0); Anisocytosis 1+; Bilirubin,Total 1.6 MG/DL (0.20-1.00); Calcium 8.2 MG/DL (8.5-10.1); Elliptocytes Few; Lymphocytes 1 % (20-55); Macrocytosis Slight; Microcytosis 1+; Nucleated Red Blood Cells 1 (0-5); Platelet Estimate Adequate; Polychromasia Slight; Potassium 3.8 MMOL/L (3.5-5.1); Schistocytes Slight; Segmented Neutrophils 97 % (50-85); Target Cells Slight; Total Cells Counted 100; Total Protein 6.1 G/DL (6.4-8.2)
[2021-12-23 21:38] LABS: Burr Cells 1+; Poikilocytosis 1+
[2021-12-23] MEDS ORDERED: METOPROLOL TARTRATE 5 MG/5 ML VIAL IV ONE (23:30)
[2021-12-24] MEDS: cefTRIAXone 1,000 MG in SODIUM CHLORIDE 0.9% 100 ML IV SCH (02:05)
[2021-12-24 03:56] LABS: ABG Base Excess 2.8 MMOL/L (-2.5-2.5); ABG HCO3 24.7 MMOL/L (20-26); ABG Oxygen Saturation 99.2 % (95-100); ABG PCO2 30.8 MM HG (35-48); ABG PH 7.522 (7.35-7.45); ABG PO2 170.6 MM HG (80-95); ABG TCO2 25.6 MMOL/L (23-27)
[2021-12-24] MEDS: NOREPINEPHRINE 8 MG in SODIUM CHLORIDE 0.9% 242 ML IV PRN ×2 (04:17→12:51)
[2021-12-24] MEDS: fentaNYL INJ 1,250 MCG in SODIUM CHLORIDE 0.9% 225 ML IV PRN ×2 (04:18→10:00)
[2021-12-24 04:25] LABS: Eosinophils % 0.1 % (0.00-10.9); Hematocrit 46.2 VOL% (35.7-47.0); Hemoglobin 15.4 GM/DL (12.0-16.0); Immature Granulocytes % 0.5 %; Immature Granulocytes Absolute 0.04 #; Lymphocytes # 0.3 10*3/uL (1.4-4.0); Lymphocytes % 3.6 % (21.3-54.2); Mean Corpuscular HGB Conc 33.3 GM/DL (32-36); Mean Corpuscular Volume 80.1 FL (87-102); Mean Platelet Volume 12.6 FL (9.6-12.0); Monocytes % 2.9 % (1.7-12.7); NRBC # 0.03 10*3/uL; Neutrophils % 92.9 % (38.7-73.9); Platelet Count 122 T/CUMM (130-400); Red Blood Count 5.77 MC/CUMM (3.8-5.5); Red Cell Distribution Width 14.5 % (9.3-17.3); White Blood Count 7.7 T/CUMM (4-12)
[2021-12-24 04:37] LABS: INR 1.9; PT Patient Result 19.8 SECS (10.5-12.0)
[2021-12-24 04:43] LABS: Albumin 2.5 G/DL (3.4-5.0); Osmolality,Calculated 298.7 MOS/KG (273-304); Potassium 3.6 MMOL/L (3.5-5.1); Total Protein 5.8 G/DL (6.4-8.2)
[2021-12-24 05:14] LABS: Anisocytosis 1+; Band Neutrophils 5 % (0-10); Burr Cells Few; Lymphocytes 3 % (20-55); Platelet Estimate Adequate; Segmented Neutrophils 91 % (50-85); Target Cells Few; Total Cells Counted 100
[2021-12-24] MEDS: ALBUTEROL/IPRATROPIUM 3 ML NEB RESP TX SCH ×3 (07:02→19:13)
[2021-12-24] MEDS ORDERED: AMIODARONE INJ 150 MG in DEXTROSE 5% 100 ML IV ONE (08:41)
[2021-12-24] MEDS ORDERED: AMIODARONE 150 MG/3 ML VIAL ONE (08:44)
[2021-12-24] MEDS: MIDAZOLAM 100 MG in SODIUM CHLORIDE 0.9% 80 ML IV PRN (09:00)
[2021-12-24] MEDS: MINERAL OIL/PETROLATUM OPH OINT 3.5 GM TUBE BOTH EYES SCH ×3 (09:52→20:55)
[2021-12-24] MEDS: PANTOPRAZOLE 40 MG VIAL IV SCH (09:52)
[2021-12-24] MEDS: AZITHROMYCIN INJ 500 MG in SODIUM CHLORIDE 0.9% 250 ML IV SCH (09:53)
[2021-12-24] MEDS: DEXTROSE 10% 1,000 ML IV SCH (09:54)
[2021-12-24] MEDS: ASCORBIC ACID 500 MG TABLET PO SCH ×2 (10:04→20:55)
[2021-12-24] MEDS ORDERED: POTASSIUM PHOSPHATE 15 MMOL in SODIUM CHLORIDE 0.9% 100 ML IV ONE (12:00)
[2021-12-24] MEDS: DOBUTamine 500 MG/250 ML PREMIX IV PRN (12:53)
[2021-12-24] MEDS: NOREPINEPHRINE 16 MG in SODIUM CHLORIDE 0.9% 234 ML IV PRN (17:53)
[2021-12-24] MEDS ORDERED: LACTATED RINGERS 500 ML IV ONE (18:02)
[2021-12-24] MEDS: ENOXAPARIN 60 MG/0.6 ML SYRINGE SUBCUT SCH (20:54)
[2021-12-24] MEDS ORDERED: SODIUM CHLORIDE 0.9% 250 ML IV ONE (22:21)
[2021-12-24] MEDS: SODIUM CHLORIDE 0.9% 1,000 ML IV SCH (22:45)
[2021-12-25] MEDS: ALBUTEROL/IPRATROPIUM 3 ML NEB RESP TX SCH ×5 (00:02→19:35)
[2021-12-25] MEDS: cefTRIAXone 1,000 MG in SODIUM CHLORIDE 0.9% 100 ML IV SCH (00:53)
[2021-12-25 03:40] LABS: ABG Base Excess 2.8 MMOL/L (-2.5-2.5); ABG HCO3 26.9 MMOL/L (20-26); ABG Oxygen Saturation 98.6 % (95-100); ABG PCO2 38.7 MM HG (35-48); ABG PH 7.448 (7.35-7.45); ABG TCO2 22.7 MMOL/L (23-27)
[2021-12-25 03:51] LABS: Basophils % 0.2 % (0.0-0.8); Eosinophils % 0.2 % (0.00-10.9); Hemoglobin 14.8 GM/DL (12.0-16.0); Immature Granulocytes % 0.5 %; Immature Granulocytes Absolute 0.05 #; Lymphocytes # 0.6 10*3/uL (1.4-4.0); Lymphocytes % 6.1 % (21.3-54.2); Mean Corpuscular HGB Conc 32.9 GM/DL (32-36); Mean Corpuscular Volume 81.1 FL (87-102); Mean Platelet Volume 11.8 FL (9.6-12.0); Monocytes % 6.9 % (1.7-12.7); Neutrophils % 86.1 % (38.7-73.9); Platelet Count 96 T/CUMM (130-400); Red Blood Count 5.55 MC/CUMM (3.8-5.5); Red Cell Distribution Width 14.5 % (9.3-17.3); White Blood Count 9.3 T/CUMM (4-12)
[2021-12-25 04:05] LABS: Albumin 2.2 G/DL (3.4-5.0); Bilirubin,Total 1.4 MG/DL (0.20-1.00); Calcium 7.9 MG/DL (8.5-10.1); Osmolality,Calculated 284.4 MOS/KG (273-304); Potassium 4.5 MMOL/L (3.5-5.1); Total Protein 5.7 G/DL (6.4-8.2)
[2021-12-25 04:10] LABS: Lymphocytes 5 % (20-55); Platelet Estimate Decreased; Segmented Neutrophils 92 % (50-85); Total Cells Counted 100
[2021-12-25 04:11] LABS: Burr Cells Slight; Ovalocytes Slight
[2021-12-25] MEDS ORDERED: FUROSEMIDE 20 MG/2 ML VIAL IV ONE (04:13)
[2021-12-25 05:07] LABS: Calcium 7.9 MG/DL (8.5-10.1); Osmolality,Calculated 285.4 MOS/KG (273-304); Potassium 4.5 MMOL/L (3.5-5.1)
[2021-12-25] MEDS: PANTOPRAZOLE 40 MG VIAL IV SCH (08:15)
[2021-12-25] MEDS: ASCORBIC ACID 500 MG TABLET PO SCH ×2 (09:30→21:46)
[2021-12-25] MEDS: MINERAL OIL/PETROLATUM OPH OINT 3.5 GM TUBE BOTH EYES SCH ×3 (09:30→21:46)
[2021-12-25] MEDS: AZITHROMYCIN INJ 500 MG in SODIUM CHLORIDE 0.9% 250 ML IV SCH (09:30)
[2021-12-25] MEDS: AMIODARONE INJ 450 MG in DEXTROSE 5% 241 ML IV SCH (12:32)
[2021-12-25] MEDS: ALBUMIN 5% 25 GM/500 ML VIAL IV SCH ×2 (12:54→18:14)
[2021-12-25 13:14] LABS: Bilirubin,Urine Negative (Negative); Blood, Urine Large mg/dL (Negative); Glucose,Urine (UA) Negative (Negative); Ketones,Urine Negative (Negative); Nitrite,Urine Negative (Negative); Protein,Urine Negative; Urine Appearance Slightly Cloudy (Clear); Urine Color Yellow (Yellow); Urine Urobilinogen 0.2 EU/DL (<2.0); Urine pH 6.5 (4.5-8.0)
[2021-12-25 13:20] LABS: Hyaline Casts,Urine 3 /LPF (0-3); Mucus,Urine Occasional /LPF (Occasional); RBC,Urine 317 /HPF (0-4); Squamous Epithelial Cell,Urine Occasional /HPF (0-10)
[2021-12-25] MEDS: SODIUM CHLORIDE 0.9% 1,000 ML IV SCH (14:14)
[2021-12-25] MEDS: NOREPINEPHRINE 16 MG in SODIUM CHLORIDE 0.9% 234 ML IV PRN (15:11)
[2021-12-25] MEDS: DOBUTamine 500 MG/250 ML PREMIX IV PRN (15:11)
[2021-12-25] MEDS: DEXTROSE 10% 1,000 ML IV SCH (15:49)
[2021-12-25] MEDS: HYDROCORTISONE 100 MG VIAL IV SCH ×2 (16:13→21:56)
[2021-12-25] MEDS: ENOXAPARIN 60 MG/0.6 ML SYRINGE SUBCUT SCH (21:46)
[2021-12-26] MEDS: ALBUMIN 5% 25 GM/500 ML VIAL IV SCH (00:55)
[2021-12-26] MEDS: SODIUM CHLORIDE 0.9% 1,000 ML IV SCH ×3 (00:58→12:18)
[2021-12-26] MEDS: ALBUTEROL/IPRATROPIUM 3 ML NEB RESP TX SCH ×4 (01:05→18:34)
[2021-12-26] MEDS: cefTRIAXone 1,000 MG in SODIUM CHLORIDE 0.9% 100 ML IV SCH (01:54)
[2021-12-26] MEDS: AMIODARONE INJ 450 MG in DEXTROSE 5% 241 ML IV SCH ×3 (01:55→17:34)
[2021-12-26] MEDS ORDERED: DEXMEDETOMIDINE 400 MCG in SODIUM CHLORIDE 0.9% 96 ML IV PRN (02:12)
[2021-12-26] MEDS: ONDANSETRON 4 MG/2 ML VIAL IV PRN ×3 (02:13→21:32)
[2021-12-26] MEDS ORDERED: LORazepam 2 MG/1 ML VIAL IV ONE ×2 (02:56→17:29)
[2021-12-26 03:29] LABS: ABG Base Excess 0.3 MMOL/L (-2.5-2.5); ABG HCO3 24.7 MMOL/L (20-26); ABG Oxygen Saturation 98.1 % (95-100); ABG PCO2 31.6 MM HG (35-48); ABG PH 7.472 (7.35-7.45); ABG PO2 99.7 MM HG (80-95); ABG TCO2 20.1 MMOL/L (23-27)
[2021-12-26 03:43] LABS: Basophils % 0.1 % (0.0-0.8); Hematocrit 38.4 VOL% (35.7-47.0); Hemoglobin 12.9 GM/DL (12.0-16.0); Immature Granulocytes % 0.5 %; Immature Granulocytes Absolute 0.05 #; Lymphocytes # 0.4 10*3/uL (1.4-4.0); Lymphocytes % 3.8 % (21.3-54.2); Mean Corpuscular HGB Conc 33.6 GM/DL (32-36); Mean Corpuscular Volume 81.5 FL (87-102); Mean Platelet Volume 13.3 FL (9.6-12.0); Monocytes % 4.6 % (1.7-12.7); Red Blood Count 4.71 MC/CUMM (3.8-5.5); Red Cell Distribution Width 14.3 % (9.3-17.3); White Blood Count 9.5 T/CUMM (4-12)
[2021-12-26] MEDS: HYDROCORTISONE 100 MG VIAL IV SCH ×3 (03:57→20:31)
[2021-12-26 03:58] LABS: Platelet Count 80 T/CUMM (130-400)
[2021-12-26 03:59] LABS: Albumin 3.5 G/DL (3.4-5.0); Bilirubin,Total 1.7 MG/DL (0.20-1.00); Calcium 8.5 MG/DL (8.5-10.1); Osmolality,Calculated 282.5 MOS/KG (273-304); Potassium 3.7 MMOL/L (3.5-5.1); Total Protein 6.6 G/DL (6.4-8.2)
[2021-12-26 04:14] LABS: Lymphocytes 4 % (20-55); Platelet Estimate Decreased; Segmented Neutrophils 92 % (50-85); Total Cells Counted 100
[2021-12-26] MEDS: MAGNESIUM SULF RIDER 2 GM/50 ML PREMIX IV PRN (06:11)
[2021-12-26] MEDS: DEXTROSE 10% 1,000 ML IV SCH (07:42)
[2021-12-26] MEDS ORDERED: POTASSIUM PHOSPHATE 15 MMOL in SODIUM CHLORIDE 0.9% 100 ML IV ONE (08:14)
[2021-12-26] MEDS: LEVOFLOXACIN 750 MG TABLET PER TUBE SCH (09:19)
[2021-12-26] MEDS: ASCORBIC ACID 500 MG TABLET PO SCH ×2 (09:19→20:31)
[2021-12-26] MEDS: MINERAL OIL/PETROLATUM OPH OINT 3.5 GM TUBE BOTH EYES SCH ×3 (09:20→20:31)
[2021-12-26] MEDS: PANTOPRAZOLE 40 MG VIAL IV SCH (09:20)
[2021-12-26] MEDS ORDERED: LORazepam 2 MG/1 ML VIAL ONE ×2 (15:14→17:24)
[2021-12-26] MEDS: LORazepam 2 MG/1 ML VIAL IV PRN ×2 (15:20→19:50)
[2021-12-26] MEDS: DOBUTamine 500 MG/250 ML PREMIX IV PRN (20:03)
[2021-12-26] MEDS ORDERED: ALUMINUM/MAGNES/SIMETH MAX STR 30 ML UDCUP PO PRN (20:24)
[2021-12-26] MEDS: FONDAPARINUX 2.5 MG/0.5 ML SYRINGE SUBCUT SCH (20:31)
[2021-12-27] MEDS: ALBUTEROL/IPRATROPIUM 3 ML NEB RESP TX SCH ×4 (00:03→19:15)
[2021-12-27] MEDS: LORazepam 2 MG/1 ML VIAL IV PRN (00:47)
[2021-12-27] MEDS: SODIUM CHLORIDE 0.9% 1,000 ML IV SCH ×2 (00:56→13:26)
[2021-12-27] MEDS: cefTRIAXone 1,000 MG in SODIUM CHLORIDE 0.9% 100 ML IV SCH (01:30)
[2021-12-27 03:29] LABS: ABG Base Excess -0.2 MMOL/L (-2.5-2.5); ABG HCO3 24.3 MMOL/L (20-26); ABG PCO2 26.9 MM HG (35-48); ABG PO2 98.5 MM HG (80-95); ABG TCO2 18.5 MMOL/L (23-27)
[2021-12-27 03:39] LABS: Basophils % 0.1 % (0.0-0.8); Hematocrit 39.4 VOL% (35.7-47.0); Hemoglobin 13.1 GM/DL (12.0-16.0); Immature Granulocytes % 0.3 %; Immature Granulocytes Absolute 0.03 #; Lymphocytes # 0.5 10*3/uL (1.4-4.0); Lymphocytes % 5.4 % (21.3-54.2); Mean Corpuscular HGB Conc 33.2 GM/DL (32-36); Mean Corpuscular Volume 80.6 FL (87-102); Mean Platelet Volume 12.8 FL (9.6-12.0); Monocytes % 6.6 % (1.7-12.7); Neutrophils % 87.6 % (38.7-73.9); Red Blood Count 4.89 MC/CUMM (3.8-5.5); Red Cell Distribution Width 14.6 % (9.3-17.3); White Blood Count 9.1 T/CUMM (4-12)
[2021-12-27 03:41] LABS: Platelet Count 84 T/CUMM (130-400)
[2021-12-27 03:57] LABS: Albumin 3.1 G/DL (3.4-5.0); Bilirubin,Total 1.7 MG/DL (0.20-1.00); Calcium 8.6 MG/DL (8.5-10.1); Osmolality,Calculated 287.1 MOS/KG (273-304); Potassium 3.2 MMOL/L (3.5-5.1); Total Protein 6.6 G/DL (6.4-8.2)
[2021-12-27 04:03] LABS: Platelet Estimate Decreased
[2021-12-27] MEDS: HYDROCORTISONE 100 MG VIAL IV SCH ×3 (04:23→21:44)
[2021-12-27] MEDS ORDERED: POTASSIUM PHOSPHATE 15 MMOL in SODIUM CHLORIDE 0.9% 100 ML IV ONE (05:50)
[2021-12-27] MEDS ORDERED: MINERAL OIL/PETROLATUM OPH OINT 3.5 GM TUBE BOTH EYES PRN (07:49)
[2021-12-27] MEDS ORDERED: FUROSEMIDE 40 MG/4 ML VIAL IV ONE (08:04)
[2021-12-27] MEDS: LEVOFLOXACIN 750 MG TABLET PER TUBE SCH (09:32)
[2021-12-27] MEDS: ASCORBIC ACID 500 MG TABLET PO SCH ×2 (09:32→21:39)
[2021-12-27] MEDS: PANTOPRAZOLE 40 MG VIAL IV SCH (09:33)
[2021-12-27] MEDS: ALUMINUM/MAGNES/SIMETH MAX STR 30 ML UDCUP PO SCH ×5 (09:33→23:37)
[2021-12-27] MEDS: AMIODARONE INJ 450 MG in DEXTROSE 5% 241 ML IV SCH (09:44)
[2021-12-27] MEDS: POTASSIUM CHLORIDE RIDER 20 MEQ/100 ML PREMIX IV PRN ×2 (11:27→13:34)
[2021-12-27] MEDS: SPIRONOLACTONE 25 MG TABLET PO SCH (12:45)
[2021-12-27] MEDS ORDERED: POLYETHYLENE GLYCOL POWDER 17 GM PACK PO SCH (13:00)
[2021-12-27] MEDS: METOCLOPRAMIDE 10 MG/2 ML VIAL IV SCH ×2 (17:40→23:40)
[2021-12-27] MEDS: DEXTROSE 10% 1,000 ML IV SCH (17:42)
[2021-12-27] MEDS: POLYETHYLENE GLYCOL POWDER 17 GM PACK PO SCH (21:38)
[2021-12-27] MEDS: FONDAPARINUX 2.5 MG/0.5 ML SYRINGE SUBCUT SCH (21:39)
[2021-12-27] MEDS: DOBUTamine 500 MG/250 ML PREMIX IV PRN (22:11)
[2021-12-28] MEDS: cefTRIAXone 1,000 MG in SODIUM CHLORIDE 0.9% 100 ML IV SCH
[2021-12-28] MEDS: ALBUTEROL/IPRATROPIUM 3 ML NEB RESP TX SCH ×4 (00:11→19:30)
[2021-12-28] MEDS: POTASSIUM CHLORIDE RIDER 20 MEQ/100 ML PREMIX IV PRN ×2 (00:12→12:50)
[2021-12-28 00:49] LABS: Albumin 3.1 G/DL (3.4-5.0); Bilirubin,Total 1.3 MG/DL (0.20-1.00); Calcium 8.7 MG/DL (8.5-10.1); Osmolality,Calculated 292.1 MOS/KG (273-304); Potassium 3.6 MMOL/L (3.5-5.1); Total Protein 6.3 G/DL (6.4-8.2)
[2021-12-28] MEDS: AMIODARONE INJ 450 MG in DEXTROSE 5% 241 ML IV SCH ×4 (01:13→17:03)
[2021-12-28] MEDS: HYDROCORTISONE 100 MG VIAL IV SCH ×3 (04:00→22:02)
[2021-12-28] MEDS: ALUMINUM/MAGNES/SIMETH MAX STR 30 ML UDCUP PO SCH ×5 (04:08→21:59)
[2021-12-28 05:26] LABS: ABG Base Excess -0.5 MMOL/L (-2.5-2.5); ABG Oxygen Saturation 97.3 % (95-100); ABG PCO2 32.6 MM HG (35-48); ABG PO2 94.7 MM HG (80-95); ABG TCO2 19.5 MMOL/L (23-27)
[2021-12-28 05:28] LABS: Basophils % 0.1 % (0.0-0.8); Hemoglobin 13.7 GM/DL (12.0-16.0); Immature Granulocytes % 0.6 %; Immature Granulocytes Absolute 0.04 #; Lymphocytes # 0.5 10*3/uL (1.4-4.0); Lymphocytes % 6.9 % (21.3-54.2); Mean Corpuscular HGB Conc 32.6 GM/DL (32-36); Mean Corpuscular Volume 81.9 FL (87-102); Mean Platelet Volume 12.4 FL (9.6-12.0); Monocytes % 10.6 % (1.7-12.7); NRBC # 0.08 10*3/uL; Neutrophils % 81.8 % (38.7-73.9); Platelet Count 104 T/CUMM (130-400); Red Blood Count 5.13 MC/CUMM (3.8-5.5); Red Cell Distribution Width 14.6 % (9.3-17.3)
[2021-12-28 05:49] LABS: Calcium 9.4 MG/DL (8.5-10.1); Osmolality,Calculated 286.5 MOS/KG (273-304); Potassium 3.7 MMOL/L (3.5-5.1)
[2021-12-28] MEDS: METOCLOPRAMIDE 10 MG/2 ML VIAL IV SCH ×3 (06:00→18:15)
[2021-12-28] MEDS: SPIRONOLACTONE 25 MG TABLET PO SCH (10:28)
[2021-12-28] MEDS: LEVOFLOXACIN 750 MG TABLET PER TUBE SCH (10:28)
[2021-12-28] MEDS: POLYETHYLENE GLYCOL POWDER 17 GM PACK PO SCH ×2 (10:28→21:59)
[2021-12-28] MEDS: PANTOPRAZOLE 40 MG VIAL IV SCH (10:28)
[2021-12-28] MEDS: ASCORBIC ACID 500 MG TABLET PO SCH ×2 (10:28→21:59)
[2021-12-28] MEDS ORDERED: CEFEPIME 1,000 MG in SODIUM CHLORIDE 0.9% 100 ML IV SCH (11:00)
[2021-12-28] MEDS: CEFEPIME 1,000 MG in SODIUM CHLORIDE 0.9% 100 ML IV SCH ×2 (12:22→18:52)
[2021-12-28] MEDS: FONDAPARINUX 2.5 MG/0.5 ML SYRINGE SUBCUT SCH (21:59)
[2021-12-29] MEDS: ALUMINUM/MAGNES/SIMETH MAX STR 30 ML UDCUP PO SCH ×7 (00:24→23:29)
[2021-12-29] MEDS: METOCLOPRAMIDE 10 MG/2 ML VIAL IV SCH ×5 (00:28→23:29)
[2021-12-29] MEDS: ALBUTEROL/IPRATROPIUM 3 ML NEB RESP TX SCH ×4 (00:55→18:20)
[2021-12-29] MEDS: CEFEPIME 1,000 MG in SODIUM CHLORIDE 0.9% 100 ML IV SCH ×2 (03:00→11:22)
[2021-12-29] MEDS: HYDROCORTISONE 100 MG VIAL IV SCH ×3 (04:00→19:58)
[2021-12-29 04:36] LABS: Basophils % 0.1 % (0.0-0.8); Hematocrit 41.9 VOL% (35.7-47.0); Hemoglobin 13.6 GM/DL (12.0-16.0); Immature Granulocytes % 1.7 %; Immature Granulocytes Absolute 0.12 #; Lymphocytes # 0.6 10*3/uL (1.4-4.0); Lymphocytes % 9.2 % (21.3-54.2); Mean Corpuscular HGB Conc 32.5 GM/DL (32-36); Mean Corpuscular Volume 82.6 FL (87-102); Mean Platelet Volume 13.5 FL (9.6-12.0); Monocytes % 15.5 % (1.7-12.7); NRBC # 0.03 10*3/uL; Neutrophils % 73.5 % (38.7-73.9); Red Blood Count 5.07 MC/CUMM (3.8-5.5); Red Cell Distribution Width 14.7 % (9.3-17.3)
[2021-12-29 04:38] LABS: Platelet Count 113 T/CUMM (130-400)
[2021-12-29 04:53] LABS: Albumin 3.1 G/DL (3.4-5.0); Bilirubin,Total 0.9 MG/DL (0.20-1.00); Calcium 8.9 MG/DL (8.5-10.1); Osmolality,Calculated 290.4 MOS/KG (273-304); Potassium 3.8 MMOL/L (3.5-5.1); Total Protein 7.2 G/DL (6.4-8.2)
[2021-12-29] MEDS: POTASSIUM CHLORIDE RIDER 20 MEQ/100 ML PREMIX IV PRN (06:15)
[2021-12-29] MEDS: SPIRONOLACTONE 25 MG TABLET PO SCH (09:49)
[2021-12-29] MEDS: ASCORBIC ACID 500 MG TABLET PO SCH ×2 (09:49→20:07)
[2021-12-29] MEDS: POLYETHYLENE GLYCOL POWDER 17 GM PACK PO SCH (09:49)
[2021-12-29] MEDS: PANTOPRAZOLE 40 MG VIAL IV SCH (09:53)
[2021-12-29] MEDS: AMIODARONE INJ 450 MG in DEXTROSE 5% 241 ML IV SCH ×2 (12:53→21:45)
[2021-12-29] MEDS: LORazepam 2 MG/1 ML VIAL IV PRN (13:49)
[2021-12-29 13:50] LABS: ABG HCO3 22.7 MMOL/L (20-26); ABG PCO2 33.9 MM HG (35-48); ABG PH 7.435 (7.35-7.45)
[2021-12-29] MEDS: SULFAMETH/TRIMETH INJ 200 MG in DEXTROSE 5% 250 ML IV SCH ×2 (15:35→21:00)
[2021-12-29] MEDS: VANCOMYCIN 125 MG CAPSULE PO SCH ×2 (18:06→23:29)
[2021-12-29] MEDS: FONDAPARINUX 2.5 MG/0.5 ML SYRINGE SUBCUT SCH (20:07)
[2021-12-30] MEDS: ALBUTEROL/IPRATROPIUM 3 ML NEB RESP TX SCH ×4 (00:09→19:42)
[2021-12-30] MEDS: SULFAMETH/TRIMETH INJ 200 MG in DEXTROSE 5% 250 ML IV SCH ×4 (02:48→21:14)
[2021-12-30] MEDS: ALUMINUM/MAGNES/SIMETH MAX STR 30 ML UDCUP PO SCH ×6 (03:45→23:16)
[2021-12-30] MEDS: HYDROCORTISONE 100 MG VIAL IV SCH ×3 (03:45→20:31)
[2021-12-30 04:23] LABS: ABG Base Excess -3.5 MMOL/L (-2.5-2.5); ABG HCO3 21.5 MMOL/L (20-26); ABG Oxygen Saturation 97.2 % (95-100); ABG PCO2 26.5 MM HG (35-48); ABG PH 7.456 (7.35-7.45); ABG TCO2 15.9 MMOL/L (23-27)
[2021-12-30 04:24] LABS: Basophils % 0.3 % (0.0-0.8); Hematocrit 43.8 VOL% (35.7-47.0); Hemoglobin 14.5 GM/DL (12.0-16.0); Immature Granulocytes % 2.6 %; Immature Granulocytes Absolute 0.28 #; Lymphocytes % 9.7 % (21.3-54.2); Mean Corpuscular HGB Conc 33.1 GM/DL (32-36); Mean Corpuscular Volume 81.3 FL (87-102); Mean Platelet Volume 13.5 FL (9.6-12.0); NRBC # 0.05 10*3/uL; Neutrophils % 72.4 % (38.7-73.9); Platelet Count 149 T/CUMM (130-400); Red Blood Count 5.39 MC/CUMM (3.8-5.5); Red Cell Distribution Width 14.7 % (9.3-17.3); White Blood Count 10.8 T/CUMM (4-12)
[2021-12-30 04:53] LABS: Albumin 3.1 G/DL (3.4-5.0); Bilirubin,Total 0.7 MG/DL (0.20-1.00); Calcium 8.8 MG/DL (8.5-10.1); Potassium 4.1 MMOL/L (3.5-5.1); Total Protein 7.2 G/DL (6.4-8.2)
[2021-12-30] MEDS: METOCLOPRAMIDE 10 MG/2 ML VIAL IV SCH ×4 (05:47→23:16)
[2021-12-30] MEDS: VANCOMYCIN 125 MG CAPSULE PO SCH ×4 (05:47→23:16)
[2021-12-30] MEDS: AMIODARONE INJ 450 MG in DEXTROSE 5% 241 ML IV SCH (05:48)
[2021-12-30] MEDS ORDERED: SODIUM PHOSPHATE IV ONE ×2 (06:06→08:00)
[2021-12-30] MEDS ORDERED: SODIUM CHLORIDE 0.9% IV ONE ×2 (06:06→08:00)
[2021-12-30] MEDS: ASCORBIC ACID 500 MG TABLET PO SCH ×2 (08:54→20:31)
[2021-12-30] MEDS: SPIRONOLACTONE 50 MG TABLET PO SCH (08:54)
[2021-12-30] MEDS: PANTOPRAZOLE 40 MG VIAL IV SCH (08:57)
[2021-12-30] MEDS: AMIODARONE 200 MG TABLET PO SCH ×2 (10:49→20:31)
[2021-12-30] MEDS ORDERED: LORazepam 2 MG/1 ML VIAL IV ONE (12:04)
[2021-12-30] MEDS ORDERED: fentaNYL 100 MCG/2 ML VIAL IV ONE (12:05)
[2021-12-30] MEDS: FONDAPARINUX 2.5 MG/0.5 ML SYRINGE SUBCUT SCH (20:31)
[2021-12-31] MEDS: ALBUTEROL/IPRATROPIUM 3 ML NEB RESP TX SCH ×4 (00:49→19:30)
[2021-12-31] MEDS: SULFAMETH/TRIMETH INJ 200 MG in DEXTROSE 5% 250 ML IV SCH ×4 (03:28→21:53)
[2021-12-31 03:30] LABS: ABG HCO3 24.4 MMOL/L (20-26); ABG Oxygen Saturation 98.1 % (95-100); ABG PCO2 29.3 MM HG (35-48); ABG PH 7.487 (7.35-7.45); ABG TCO2 18.9 MMOL/L (23-27)
[2021-12-31] MEDS: HYDROCORTISONE 100 MG VIAL IV SCH ×3 (03:33→20:36)
[2021-12-31] MEDS: ALUMINUM/MAGNES/SIMETH MAX STR 30 ML UDCUP PO SCH ×5 (03:33→20:35)
[2021-12-31 03:37] LABS: Basophils % 0.2 % (0.0-0.8); Eosinophils # 0.1 10*3/uL (0.0-0.87); Eosinophils % 0.5 % (0.00-10.9); Hematocrit 41.8 VOL% (35.7-47.0); Hemoglobin 14.1 GM/DL (12.0-16.0); Immature Granulocytes % 2.6 %; Immature Granulocytes Absolute 0.35 #; Lymphocytes # 1.1 10*3/uL (1.4-4.0); Lymphocytes % 8.3 % (21.3-54.2); Mean Corpuscular HGB Conc 33.7 GM/DL (32-36); Mean Corpuscular Volume 78.9 FL (87-102); Monocytes % 12.5 % (1.7-12.7); NRBC # 0.11 10*3/uL; Neutrophils % 75.9 % (38.7-73.9); Platelet Count 160 T/CUMM (130-400); Red Cell Distribution Width 14.7 % (9.3-17.3); White Blood Count 13.4 T/CUMM (4-12)
[2021-12-31 03:52] LABS: Albumin 3.1 G/DL (3.4-5.0); Bilirubin,Total 0.6 MG/DL (0.20-1.00); Potassium 4.2 MMOL/L (3.5-5.1); Total Protein 7.3 G/DL (6.4-8.2)
[2021-12-31 03:57] LABS: Band Neutrophils 1 % (0-10); Eosinophils 1 % (0-10); Lymphocytes 16 % (20-55); Nucleated Red Blood Cells 1 (0-5); Segmented Neutrophils 73 % (50-85); Total Cells Counted 100
[2021-12-31 03:58] LABS: Hypochromia 1+
[2021-12-31 03:59] LABS: Microcytosis 1+; Ovalocytes Few; Platelet Estimate Adequate
[2021-12-31] MEDS: METOCLOPRAMIDE 10 MG/2 ML VIAL IV SCH ×3 (05:17→17:11)
[2021-12-31] MEDS: VANCOMYCIN 125 MG CAPSULE PO SCH ×2 (05:17→12:45)
[2021-12-31] MEDS ORDERED: SODIUM PHOSPHATE IV ONE (06:00)
[2021-12-31] MEDS ORDERED: SODIUM CHLORIDE 0.9% IV ONE (06:00)
[2021-12-31] MEDS ORDERED: FUROSEMIDE 40 MG/4 ML VIAL IV ONE (06:20)
[2021-12-31] MEDS: ASCORBIC ACID 500 MG TABLET PO SCH ×2 (09:00→20:35)
[2021-12-31] MEDS: SPIRONOLACTONE 50 MG TABLET PO SCH (09:00)
[2021-12-31] MEDS: AMIODARONE 200 MG TABLET PO SCH ×2 (09:00→20:35)
[2021-12-31] MEDS: PANTOPRAZOLE 40 MG VIAL IV SCH (09:21)
[2021-12-31] MEDS ORDERED: SODIUM PHOSPHATE INJ 30 MMOL in SODIUM CHLORIDE 0.9% 250 ML IV ONE (10:00)
[2021-12-31] MEDS: VANCOMYCIN 50 MG/ML 60 ML/BOTTLE PO SCH (17:11)
[2021-12-31] MEDS: INSULIN REGULAR 100 UNIT/ML SUBCUT SCH ×2 (17:49→23:18)
[2021-12-31] MEDS: FONDAPARINUX 2.5 MG/0.5 ML SYRINGE SUBCUT SCH (20:36)
[2022-01-01] MEDS: ALUMINUM/MAGNES/SIMETH MAX STR 30 ML UDCUP PO SCH ×7 (00:25→23:17)
[2022-01-01] MEDS: METOCLOPRAMIDE 10 MG/2 ML VIAL IV SCH ×3 (00:25→12:44)
[2022-01-01] MEDS: VANCOMYCIN 50 MG/ML 60 ML/BOTTLE PO SCH ×5 (00:25→23:18)
[2022-01-01] MEDS: SULFAMETH/TRIMETH INJ 200 MG in DEXTROSE 5% 250 ML IV SCH ×4 (03:36→20:40)
[2022-01-01] MEDS: HYDROCORTISONE 100 MG VIAL IV SCH ×3 (03:48→20:20)
[2022-01-01] MEDS: ALBUTEROL/IPRATROPIUM 3 ML NEB RESP TX SCH ×4 (03:57→19:41)
[2022-01-01 04:20] LABS: Basophils # 0.1 10*3/uL (0.0-0.2); Basophils % 0.6 % (0.0-0.8); Eosinophils % 0.1 % (0.00-10.9); Hematocrit 40.7 VOL% (35.7-47.0); Hemoglobin 13.4 GM/DL (12.0-16.0); Immature Granulocytes % 2.8 %; Immature Granulocytes Absolute 0.29 #; Lymphocytes # 0.7 10*3/uL (1.4-4.0); Lymphocytes % 6.4 % (21.3-54.2); Mean Corpuscular HGB Conc 32.9 GM/DL (32-36); Mean Corpuscular Volume 78.7 FL (87-102); Monocytes % 8.5 % (1.7-12.7); NRBC # 0.15 10*3/uL; Neutrophils % 81.6 % (38.7-73.9); Platelet Count 164 T/CUMM (130-400); Red Blood Count 5.17 MC/CUMM (3.8-5.5); Red Cell Distribution Width 14.6 % (9.3-17.3); White Blood Count 10.5 T/CUMM (4-12)
[2022-01-01 04:27] LABS: ABG HCO3 22.2 MMOL/L (20-26); ABG Oxygen Saturation 98.3 % (95-100); ABG PCO2 29.6 MM HG (35-48); ABG PH 7.493 (7.35-7.45); ABG PO2 109.8 MM HG (80-95); ABG TCO2 23.1 MMOL/L (23-27)
[2022-01-01 04:31] LABS: Albumin 2.8 G/DL (3.4-5.0); Bilirubin,Total 0.5 MG/DL (0.20-1.00); Calcium 8.8 MG/DL (8.5-10.1); Osmolality,Calculated 278.4 MOS/KG (273-304); Potassium 3.8 MMOL/L (3.5-5.1); Total Protein 6.7 G/DL (6.4-8.2)
[2022-01-01] MEDS: INSULIN REGULAR 100 UNIT/ML SUBCUT SCH ×4 (05:11→23:17)
[2022-01-01] MEDS ORDERED: DEXMEDETOMIDINE 200 MCG in SODIUM CHLORIDE 0.9% 48 ML IV PRN (07:54)
[2022-01-01] MEDS: ASCORBIC ACID 500 MG TABLET PO SCH ×2 (08:37→20:21)
[2022-01-01] MEDS: AMIODARONE 200 MG TABLET PO SCH ×2 (08:37→20:21)
[2022-01-01] MEDS: SPIRONOLACTONE 50 MG TABLET PO SCH (08:37)
[2022-01-01] MEDS: PANTOPRAZOLE 40 MG VIAL IV SCH (08:37)
[2022-01-01] MEDS: FONDAPARINUX 2.5 MG/0.5 ML SYRINGE SUBCUT SCH (20:20)
[2022-01-02] MEDS: ALBUTEROL/IPRATROPIUM 3 ML NEB RESP TX SCH ×4 (00:08→19:13)
[2022-01-02] MEDS: SULFAMETH/TRIMETH INJ 200 MG in DEXTROSE 5% 250 ML IV SCH ×4 (03:53→20:44)
[2022-01-02 03:58] LABS: ABG Base Excess 1.7 MMOL/L (-2.5-2.5); ABG HCO3 25.9 MMOL/L (20-26); ABG Oxygen Saturation 99.1 % (95-100); ABG PCO2 32.5 MM HG (35-48); ABG PH 7.484 (7.35-7.45); ABG TCO2 21.1 MMOL/L (23-27)
[2022-01-02 04:11] LABS: Basophils % 0.4 % (0.0-0.8); Eosinophils % 0.1 % (0.00-10.9); Hematocrit 40.3 VOL% (35.7-47.0); Hemoglobin 13.4 GM/DL (12.0-16.0); Immature Granulocytes % 2.4 %; Immature Granulocytes Absolute 0.26 #; Lymphocytes # 0.9 10*3/uL (1.4-4.0); Lymphocytes % 8.2 % (21.3-54.2); Mean Corpuscular HGB Conc 33.3 GM/DL (32-36); Mean Corpuscular Volume 78.3 FL (87-102); Monocytes % 7.8 % (1.7-12.7); NRBC # 0.13 10*3/uL; Neutrophils % 81.1 % (38.7-73.9); Platelet Count 149 T/CUMM (130-400); Red Blood Count 5.15 MC/CUMM (3.8-5.5); Red Cell Distribution Width 14.5 % (9.3-17.3); White Blood Count 10.6 T/CUMM (4-12)
[2022-01-02 04:25] LABS: Albumin 2.9 G/DL (3.4-5.0); Bilirubin,Direct 0.4 MG/DL (0.0-0.20); Bilirubin,Indirect 0.3 MG/DL (0.0-1.0); Bilirubin,Total 0.7 MG/DL (0.20-1.00); Calcium 8.6 MG/DL (8.5-10.1); Osmolality,Calculated 273.4 MOS/KG (273-304); Potassium 4.3 MMOL/L (3.5-5.1); Total Protein 6.9 G/DL (6.4-8.2)
[2022-01-02] MEDS: ALUMINUM/MAGNES/SIMETH MAX STR 30 ML UDCUP PO SCH ×6 (04:39→23:23)
[2022-01-02] MEDS: HYDROCORTISONE 100 MG VIAL IV SCH ×3 (04:39→19:30)
[2022-01-02] MEDS: INSULIN REGULAR 100 UNIT/ML SUBCUT SCH ×4 (05:55→23:13)
[2022-01-02] MEDS: VANCOMYCIN 50 MG/ML 60 ML/BOTTLE PO SCH ×4 (06:39→23:23)
[2022-01-02] MEDS: PANTOPRAZOLE 40 MG VIAL IV SCH (09:42)
[2022-01-02] MEDS: ASCORBIC ACID 500 MG TABLET PO SCH ×2 (09:42→20:16)
[2022-01-02] MEDS: SPIRONOLACTONE 50 MG TABLET PO SCH (09:42)
[2022-01-02] MEDS: AMIODARONE 200 MG TABLET PO SCH ×2 (09:42→20:16)
[2022-01-02 18:04] VITALS: BP 107/69
[2022-01-02] MEDS: FONDAPARINUX 2.5 MG/0.5 ML SYRINGE SUBCUT SCH (20:16)
[2022-01-02] MEDS: DEXTROSE 5% 1,000 ML IV SCH (23:23)
[2022-01-03] MEDS: ALBUTEROL/IPRATROPIUM 3 ML NEB RESP TX SCH ×4 (00:09→18:46)
[2022-01-03] MEDS: LORazepam 2 MG/1 ML VIAL IV PRN (01:28)
[2022-01-03] MEDS: HYDROCORTISONE 100 MG VIAL IV SCH ×3 (03:12→20:34)
[2022-01-03] MEDS: ALUMINUM/MAGNES/SIMETH MAX STR 30 ML UDCUP PO SCH ×6 (03:15→23:57)
[2022-01-03] MEDS: SULFAMETH/TRIMETH INJ 200 MG in DEXTROSE 5% 250 ML IV SCH ×4 (03:15→20:51)
[2022-01-03 04:00] LABS: ABG Base Excess 2.6 MMOL/L (-2.5-2.5); ABG HCO3 26.7 MMOL/L (20-26); ABG Oxygen Saturation 97.9 % (95-100); ABG PCO2 34.9 MM HG (35-48); ABG PH 7.477 (7.35-7.45); ABG TCO2 22.8 MMOL/L (23-27)
[2022-01-03 04:09] LABS: Basophils % 0.1 % (0.0-0.8); Eosinophils % 0.2 % (0.00-10.9); Hematocrit 35.6 VOL% (35.7-47.0); Immature Granulocytes % 1.5 %; Immature Granulocytes Absolute 0.14 #; Lymphocytes # 0.7 10*3/uL (1.4-4.0); Lymphocytes % 7.2 % (21.3-54.2); Mean Corpuscular HGB Conc 33.7 GM/DL (32-36); Mean Corpuscular Volume 78.6 FL (87-102); Mean Platelet Volume 12.6 FL (9.6-12.0); Monocytes % 6.1 % (1.7-12.7); NRBC # 0.06 10*3/uL; Neutrophils % 84.9 % (38.7-73.9); Platelet Count 139 T/CUMM (130-400); Red Blood Count 4.53 MC/CUMM (3.8-5.5); Red Cell Distribution Width 14.6 % (9.3-17.3); White Blood Count 9.4 T/CUMM (4-12)
[2022-01-03 04:26] LABS: Albumin 2.5 G/DL (3.4-5.0); Bilirubin,Direct 0.44 MG/DL (0.0-0.20); Bilirubin,Indirect 0.8 MG/DL (0.0-1.0); Bilirubin,Total 1.2 MG/DL (0.20-1.00); Calcium 8.3 MG/DL (8.5-10.1); Osmolality,Calculated 275.1 MOS/KG (273-304); Potassium 4.2 MMOL/L (3.5-5.1)
[2022-01-03 04:33] LABS: Lymphocytes 8 % (20-55); Segmented Neutrophils 88 % (50-85); Total Cells Counted 100
[2022-01-03 04:34] LABS: Platelet Estimate Adequate
[2022-01-03] MEDS: INSULIN REGULAR 100 UNIT/ML SUBCUT SCH ×4 (05:04→23:24)
[2022-01-03] MEDS: VANCOMYCIN 50 MG/ML 60 ML/BOTTLE PO SCH ×4 (05:22→23:57)
[2022-01-03] MEDS ORDERED: POTASSIUM PHOSPHATE 15 MMOL in SODIUM CHLORIDE 0.9% 100 ML IV ONE (08:00)
[2022-01-03] MEDS: AMIODARONE 200 MG TABLET PO SCH ×2 (09:14→20:34)
[2022-01-03] MEDS: SPIRONOLACTONE 50 MG TABLET PO SCH (09:14)
[2022-01-03] MEDS: PANTOPRAZOLE 40 MG VIAL IV SCH (09:15)
[2022-01-03] MEDS: ASCORBIC ACID 500 MG TABLET PO SCH ×2 (09:15→20:35)
[2022-01-03] MEDS: METOPROLOL TARTRATE 25 MG TABLET PO SCH ×2 (12:14→20:34)
[2022-01-03] MEDS: FONDAPARINUX 2.5 MG/0.5 ML SYRINGE SUBCUT SCH (20:34)
[2022-01-04] MEDS: ALBUTEROL/IPRATROPIUM 3 ML NEB RESP TX SCH ×4 (00:12→18:36)
[2022-01-04] MEDS: ALUMINUM/MAGNES/SIMETH MAX STR 30 ML UDCUP PO SCH ×5 (03:02→21:09)
[2022-01-04] MEDS: SULFAMETH/TRIMETH INJ 200 MG in DEXTROSE 5% 250 ML IV SCH ×4 (03:02→21:10)
[2022-01-04] MEDS: HYDROCORTISONE 100 MG VIAL IV SCH ×3 (03:02→21:10)
[2022-01-04 03:46] LABS: ABG Base Excess 1.1 MMOL/L (-2.5-2.5); ABG HCO3 25.4 MMOL/L (20-26); ABG PCO2 32.2 MM HG (35-48); ABG TCO2 20.8 MMOL/L (23-27)
[2022-01-04 03:48] LABS: Basophils % 0.2 % (0.0-0.8); Eosinophils % 0.1 % (0.00-10.9); Hemoglobin 12.7 GM/DL (12.0-16.0); Immature Granulocytes % 1.6 %; Immature Granulocytes Absolute 0.13 #; Lymphocytes # 0.6 10*3/uL (1.4-4.0); Lymphocytes % 7.3 % (21.3-54.2); Mean Corpuscular HGB Conc 33.4 GM/DL (32-36); Mean Corpuscular Volume 77.7 FL (87-102); Mean Platelet Volume 13.3 FL (9.6-12.0); NRBC # 0.05 10*3/uL; Neutrophils % 84.8 % (38.7-73.9); Platelet Count 176 T/CUMM (130-400); Red Blood Count 4.89 MC/CUMM (3.8-5.5); Red Cell Distribution Width 14.6 % (9.3-17.3); White Blood Count 8.3 T/CUMM (4-12)
[2022-01-04 04:06] LABS: Hypochromia 1+; Microcytosis 1+; Ovalocytes Slight; Platelet Estimate Adequate
[2022-01-04 04:07] LABS: Calcium 8.4 MG/DL (8.5-10.1); Osmolality,Calculated 266.9 MOS/KG (273-304); Potassium 4.6 MMOL/L (3.5-5.1)
[2022-01-04] MEDS: INSULIN REGULAR 100 UNIT/ML SUBCUT SCH ×3 (05:22→18:10)
[2022-01-04] MEDS: VANCOMYCIN 50 MG/ML 60 ML/BOTTLE PO SCH ×3 (05:54→18:10)
[2022-01-04] MEDS: ASCORBIC ACID 500 MG TABLET PO SCH ×2 (09:41→21:09)
[2022-01-04] MEDS: AMIODARONE 200 MG TABLET PO SCH ×2 (09:42→21:09)
[2022-01-04] MEDS: PANTOPRAZOLE 40 MG VIAL IV SCH (09:42)
[2022-01-04] MEDS: METOPROLOL TARTRATE 25 MG TABLET PO SCH ×2 (09:42→21:08)
[2022-01-04] MEDS: SPIRONOLACTONE 50 MG TABLET PO SCH (09:42)
[2022-01-04] MEDS: DEXTROSE 5% 1,000 ML IV SCH (23:41)
[2022-01-05] MEDS: VANCOMYCIN 50 MG/ML 60 ML/BOTTLE PO SCH ×5 (00:19→23:53)
[2022-01-05] MEDS: ALUMINUM/MAGNES/SIMETH MAX STR 30 ML UDCUP PO SCH ×6 (00:19→20:31)
[2022-01-05] MEDS: INSULIN REGULAR 100 UNIT/ML SUBCUT SCH ×5 (00:24→23:47)
[2022-01-05] MEDS: ALBUTEROL/IPRATROPIUM 3 ML NEB RESP TX SCH ×4 (00:40→19:46)
[2022-01-05] MEDS: HYDROCORTISONE 100 MG VIAL IV SCH ×2 (03:22→20:31)
[2022-01-05] MEDS: SULFAMETH/TRIMETH INJ 200 MG in DEXTROSE 5% 250 ML IV SCH ×4 (03:26→22:10)
[2022-01-05 03:50] LABS: ABG Base Excess 0.2 MMOL/L (-2.5-2.5); ABG HCO3 24.6 MMOL/L (20-26); ABG Oxygen Saturation 98.9 % (95-100); ABG PCO2 29.2 MM HG (35-48); ABG PH 7.494 (7.35-7.45); ABG TCO2 19.8 MMOL/L (23-27)
[2022-01-05 03:56] LABS: Hematocrit 35.6 VOL% (35.7-47.0); Hemoglobin 12.2 GM/DL (12.0-16.0); Immature Granulocytes Absolute 0.07 #; Lymphocytes # 0.5 10*3/uL (1.4-4.0); Lymphocytes % 7.2 % (21.3-54.2); Mean Corpuscular HGB Conc 34.3 GM/DL (32-36); Mean Corpuscular Volume 78.1 FL (87-102); Mean Platelet Volume 13.4 FL (9.6-12.0); Monocytes % 7.4 % (1.7-12.7); NRBC # 0.03 10*3/uL; Neutrophils % 84.4 % (38.7-73.9); Platelet Count 163 T/CUMM (130-400); Red Blood Count 4.56 MC/CUMM (3.8-5.5); Red Cell Distribution Width 14.5 % (9.3-17.3); White Blood Count 7.2 T/CUMM (4-12)
[2022-01-05 04:22] LABS: Calcium 8.2 MG/DL (8.5-10.1); Osmolality,Calculated 268.7 MOS/KG (273-304); Potassium 4.2 MMOL/L (3.5-5.1)
[2022-01-05] MEDS ORDERED: LIDOCAINE 1%/EPI INJ 20 ML VIAL ONE ×2 (06:08→06:19)
[2022-01-05] MEDS ORDERED: MIDAZOLAM 2 MG/2 ML VIAL ONE (06:33)
[2022-01-05] MEDS ORDERED: VECURONIUM 10 MG VIAL IV ONE (06:33)
[2022-01-05] MEDS ORDERED: SEVOFLURANE 1 UNIT/15 MINUTE INH ONE (06:35)
[2022-01-05] MEDS ORDERED: PHENYLEPHRINE 1 MG/10 ML SYRINGE IV ONE (07:14)
[2022-01-05] MEDS ORDERED: fentaNYL 100 MCG/2 ML VIAL ONE (07:14)
[2022-01-05] MEDS ORDERED: ALBUTEROL 2.5 MG/3 ML NEB RESP TX ONE (07:24)
[2022-01-05] MEDS ORDERED: KETAMINE 500 MG/10 ML VIAL ONE (07:30)
[2022-01-05] MEDS ORDERED: ePHEDrine 50 MG/ML VIAL ONE (07:31)
[2022-01-05] MEDS: SPIRONOLACTONE 50 MG TABLET PO SCH (08:31)
[2022-01-05] MEDS: PANTOPRAZOLE 40 MG VIAL IV SCH (08:34)
[2022-01-05] MEDS: AMIODARONE 200 MG TABLET PO SCH ×2 (08:34→20:31)
[2022-01-05] MEDS: ASCORBIC ACID 500 MG TABLET PO SCH ×2 (08:35→20:30)
[2022-01-05] MEDS ORDERED: FUROSEMIDE 40 MG/4 ML VIAL IV ONE (08:39)
[2022-01-05] MEDS: METOPROLOL TARTRATE 25 MG TABLET PO SCH (09:12)
[2022-01-05] MEDS: METOCLOPRAMIDE 10 MG/2 ML VIAL IV SCH ×2 (17:19→23:53)
[2022-01-05] MEDS: fentaNYL 100 MCG/2 ML VIAL IV PRN (20:37)
[2022-01-06] MEDS ORDERED: LORazepam 2 MG/1 ML VIAL IV ONE (00:03)
[2022-01-06] MEDS: ALUMINUM/MAGNES/SIMETH MAX STR 30 ML UDCUP PO SCH ×5 (00:04→16:28)
[2022-01-06] MEDS: ALBUTEROL/IPRATROPIUM 3 ML NEB RESP TX SCH ×4 (00:08→19:17)
[2022-01-06 03:47] LABS: ABG Base Excess 2.7 MMOL/L (-2.5-2.5); ABG HCO3 26.8 MMOL/L (20-26); ABG Oxygen Saturation 97.6 % (95-100); ABG PCO2 27.7 MM HG (35-48); ABG PH 7.546 (7.35-7.45); ABG PO2 96.9 MM HG (80-95); ABG TCO2 20.8 MMOL/L (23-27); Basophils % 0.1 % (0.0-0.8); Hematocrit 38.1 VOL% (35.7-47.0); Hemoglobin 13.1 GM/DL (12.0-16.0); Immature Granulocytes % 0.7 %; Immature Granulocytes Absolute 0.06 #; Lymphocytes # 0.5 10*3/uL (1.4-4.0); Lymphocytes % 6.1 % (21.3-54.2); Mean Corpuscular HGB Conc 34.4 GM/DL (32-36); Mean Corpuscular Volume 75.7 FL (87-102); Mean Platelet Volume 12.5 FL (9.6-12.0); Monocytes % 7.3 % (1.7-12.7); NRBC # 0.03 10*3/uL; Neutrophils % 85.8 % (38.7-73.9); Platelet Count 203 T/CUMM (130-400); Red Blood Count 5.03 MC/CUMM (3.8-5.5); Red Cell Distribution Width 14.6 % (9.3-17.3); White Blood Count 8.4 T/CUMM (4-12)
[2022-01-06 04:02] LABS: Calcium 8.7 MG/DL (8.5-10.1); Osmolality,Calculated 270.4 MOS/KG (273-304); Potassium 3.8 MMOL/L (3.5-5.1)
[2022-01-06 04:19] LABS: Hypochromia 1+
[2022-01-06 04:20] LABS: Microcytosis 1+; Ovalocytes Few; Platelet Estimate Normal
[2022-01-06] MEDS: INSULIN REGULAR 100 UNIT/ML SUBCUT SCH ×4 (05:43→23:29)
[2022-01-06] MEDS: VANCOMYCIN 50 MG/ML 60 ML/BOTTLE PO SCH ×2 (06:14→13:44)
[2022-01-06] MEDS: METOCLOPRAMIDE 10 MG/2 ML VIAL IV SCH ×4 (06:14→23:49)
[2022-01-06] MEDS: SULFAMETH/TRIMETH INJ 200 MG in DEXTROSE 5% 250 ML IV SCH ×4 (09:30→21:57)
[2022-01-06] MEDS ORDERED: FUROSEMIDE 40 MG/4 ML VIAL IV ONE (09:52)
[2022-01-06] MEDS: POTASSIUM CHLORIDE RIDER 20 MEQ/100 ML PREMIX IV PRN (09:59)
[2022-01-06] MEDS: HYDROCORTISONE 100 MG VIAL IV SCH ×2 (10:00→20:20)
[2022-01-06] MEDS: PANTOPRAZOLE 40 MG VIAL IV SCH (10:05)
[2022-01-06] MEDS ORDERED: LORazepam 2 MG/1 ML VIAL IV PRN (11:35)
[2022-01-06] MEDS: ASCORBIC ACID 500 MG TABLET PO SCH (13:12)
[2022-01-06] MEDS: AMIODARONE 200 MG TABLET PO SCH (13:18)
[2022-01-06] MEDS: SPIRONOLACTONE 50 MG TABLET PO SCH (13:18)
[2022-01-06] MEDS: VANCOMYCIN INJ 500 MG, SODIUM CHLORIDE 0.9% 100 ML RECTAL SCH ×2 (18:20→23:47)
[2022-01-06] MEDS: METOPROLOL TARTRATE 5 MG/5 ML VIAL IV SCH (18:35)
[2022-01-06] MEDS: FONDAPARINUX 2.5 MG/0.5 ML SYRINGE SUBCUT SCH (20:20)
[2022-01-06] MEDS: fentaNYL 100 MCG/2 ML VIAL IV PRN (23:04)
[2022-01-07] MEDS: ALBUTEROL/IPRATROPIUM 3 ML NEB RESP TX SCH ×4 (00:25→18:45)
[2022-01-07] MEDS: METOPROLOL TARTRATE 5 MG/5 ML VIAL IV SCH ×5 (01:06→23:45)
[2022-01-07] MEDS: SULFAMETH/TRIMETH INJ 200 MG in DEXTROSE 5% 250 ML IV SCH ×4 (03:08→21:01)
[2022-01-07] MEDS: fentaNYL 100 MCG/2 ML VIAL IV PRN ×3 (03:08→16:32)
[2022-01-07 03:48] LABS: ABG Base Excess 2.5 MMOL/L (-2.5-2.5); ABG HCO3 26.7 MMOL/L (20-26); ABG PCO2 29.3 MM HG (35-48); ABG PH 7.528 (7.35-7.45); ABG TCO2 21.3 MMOL/L (23-27)
[2022-01-07 03:49] LABS: Basophils % 0.1 % (0.0-0.8); Eosinophils % 0.1 % (0.00-10.9); Hematocrit 36.9 VOL% (35.7-47.0); Hemoglobin 12.5 GM/DL (12.0-16.0); Immature Granulocytes % 0.9 %; Immature Granulocytes Absolute 0.07 #; Lymphocytes # 0.4 10*3/uL (1.4-4.0); Lymphocytes % 5.1 % (21.3-54.2); Mean Corpuscular HGB Conc 33.9 GM/DL (32-36); Mean Corpuscular Volume 77.7 FL (87-102); Monocytes % 7.9 % (1.7-12.7); NRBC # 0.02 10*3/uL; Neutrophils % 85.9 % (38.7-73.9); Platelet Count 185 T/CUMM (130-400); Red Blood Count 4.75 MC/CUMM (3.8-5.5); Red Cell Distribution Width 14.6 % (9.3-17.3); White Blood Count 7.6 T/CUMM (4-12)
[2022-01-07 04:07] LABS: Albumin 2.6 G/DL (3.4-5.0); Calcium 8.6 MG/DL (8.5-10.1); Osmolality,Calculated 273.1 MOS/KG (273-304); Potassium 3.6 MMOL/L (3.5-5.1); Total Protein 6.2 G/DL (6.4-8.2)
[2022-01-07] MEDS: INSULIN REGULAR 100 UNIT/ML SUBCUT SCH ×4 (05:48→23:45)
[2022-01-07] MEDS: METOCLOPRAMIDE 10 MG/2 ML VIAL IV SCH ×4 (05:54→23:38)
[2022-01-07] MEDS: VANCOMYCIN INJ 500 MG, SODIUM CHLORIDE 0.9% 100 ML RECTAL SCH ×4 (05:55→23:46)
[2022-01-07] MEDS: HYDROCORTISONE 100 MG VIAL IV SCH ×2 (09:09→20:58)
[2022-01-07] MEDS: FUROSEMIDE 20 MG/2 ML VIAL IV SCH (09:28)
[2022-01-07] MEDS: PANTOPRAZOLE 40 MG VIAL IV SCH (09:30)
[2022-01-07] MEDS: MAGNESIUM SULF RIDER 2 GM/50 ML PREMIX IV PRN (10:36)
[2022-01-07] MEDS: POTASSIUM CHLORIDE RIDER 20 MEQ/100 ML PREMIX IV PRN (10:36)
[2022-01-07] MEDS: DOBUTamine 500 MG/250 ML PREMIX IV SCH (11:02)
[2022-01-07] MEDS ORDERED: DEXTROSE 10% 250 ML BAG IV PRN (11:30)
[2022-01-07] MEDS ORDERED: ZINC/COPPER/MANGANESE/SELENIUM 1 ML, MULTIVITAMIN INJ 10 ML in AMINO ACIDS/DEXT/LYTES 5... IV SCH (17:00)
[2022-01-07] MEDS ORDERED: DEXTROSE 10% 1,000 ML IV PRN (17:00)
[2022-01-07] MEDS: FONDAPARINUX 2.5 MG/0.5 ML SYRINGE SUBCUT SCH (21:07)
[2022-01-08] MEDS: fentaNYL 100 MCG/2 ML VIAL IV PRN ×7 (00:03→23:41)
[2022-01-08] MEDS: ALBUTEROL/IPRATROPIUM 3 ML NEB RESP TX SCH ×4 (01:20→19:28)
[2022-01-08] MEDS: SULFAMETH/TRIMETH INJ 200 MG in DEXTROSE 5% 250 ML IV SCH ×4 (02:35→21:33)
[2022-01-08 04:12] LABS: ABG Base Excess 0.8 MMOL/L (-2.5-2.5); ABG HCO3 25.1 MMOL/L (20-26); ABG Oxygen Saturation 98.2 % (95-100); ABG PCO2 37.9 MM HG (35-48); ABG PH 7.427 (7.35-7.45); ABG TCO2 22.2 MMOL/L (23-27)
[2022-01-08 04:16] LABS: Basophils % 0.1 % (0.0-0.8); Eosinophils % 0.2 % (0.00-10.9); Hemoglobin 11.5 GM/DL (12.0-16.0); Immature Granulocytes % 0.9 %; Immature Granulocytes Absolute 0.07 #; Lymphocytes # 0.4 10*3/uL (1.4-4.0); Lymphocytes % 4.6 % (21.3-54.2); Mean Corpuscular HGB Conc 33.8 GM/DL (32-36); Mean Corpuscular Volume 78.7 FL (87-102); Monocytes % 7.3 % (1.7-12.7); Neutrophils % 86.9 % (38.7-73.9); Platelet Count 154 T/CUMM (130-400); Red Blood Count 4.32 MC/CUMM (3.8-5.5); Red Cell Distribution Width 14.9 % (9.3-17.3); White Blood Count 8.1 T/CUMM (4-12)
[2022-01-08 04:27] LABS: Albumin 2.3 G/DL (3.4-5.0); Bilirubin,Total 0.7 MG/DL (0.20-1.00); Calcium 7.7 MG/DL (8.5-10.1); Osmolality,Calculated 271.4 MOS/KG (273-304); Potassium 4.1 MMOL/L (3.5-5.1); Total Protein 5.8 G/DL (6.4-8.2)
[2022-01-08 04:37] LABS: Band Neutrophils 1 % (0-10); Eosinophils 2 % (0-10); Hypochromia 1+; Lymphocytes 5 % (20-55); Segmented Neutrophils 84 % (50-85); Total Cells Counted 100
[2022-01-08 04:38] LABS: Microcytosis 1+; Ovalocytes Few; Platelet Estimate Adequate; Target Cells Slight
[2022-01-08] MEDS: INSULIN REGULAR 100 UNIT/ML SUBCUT SCH ×3 (05:25→18:23)
[2022-01-08] MEDS: METOPROLOL TARTRATE 5 MG/5 ML VIAL IV SCH ×4 (05:59→23:36)
[2022-01-08] MEDS: METOCLOPRAMIDE 10 MG/2 ML VIAL IV SCH ×4 (06:03→23:33)
[2022-01-08] MEDS: VANCOMYCIN INJ 500 MG, SODIUM CHLORIDE 0.9% 100 ML RECTAL SCH (06:03)
[2022-01-08] MEDS: HYDROCORTISONE 100 MG VIAL IV SCH ×2 (08:24→20:03)
[2022-01-08] MEDS: FUROSEMIDE 20 MG/2 ML VIAL IV SCH (08:27)
[2022-01-08] MEDS: PANTOPRAZOLE 40 MG VIAL IV SCH (08:29)
[2022-01-08] MEDS: DOBUTamine 500 MG/250 ML PREMIX IV SCH (10:26)
[2022-01-08] MEDS: metroNIDAZOLE INJ 500 MG/100 ML PREMIX IV SCH ×2 (12:05→18:25)
[2022-01-08] MEDS: VANCOMYCIN 50 MG/ML 60 ML/BOTTLE PER TUBE SCH ×3 (12:12→23:35)
[2022-01-08] MEDS: ZINC/COPPER/MANGANESE/SELENIUM 1 ML, MULTIVITAMIN INJ 10 ML in AMINO ACIDS/DEXT/LYTES 5... IV SCH (17:34)
[2022-01-08] MEDS: FONDAPARINUX 2.5 MG/0.5 ML SYRINGE SUBCUT SCH (21:33)
[2022-01-09] MEDS: INSULIN REGULAR 100 UNIT/ML SUBCUT SCH ×5 (00:47→23:13)
[2022-01-09] MEDS: ALBUTEROL/IPRATROPIUM 3 ML NEB RESP TX SCH ×4 (01:55→19:20)
[2022-01-09] MEDS: fentaNYL 100 MCG/2 ML VIAL IV PRN ×2 (02:17→08:00)
[2022-01-09 03:35] LABS: Hematocrit 31.4 VOL% (35.7-47.0); Hemoglobin 10.9 GM/DL (12.0-16.0); Immature Granulocytes % 0.8 %; Immature Granulocytes Absolute 0.06 #; Lymphocytes # 0.2 10*3/uL (1.4-4.0); Lymphocytes % 2.7 % (21.3-54.2); Mean Corpuscular HGB Conc 34.7 GM/DL (32-36); Mean Corpuscular Volume 77.7 FL (87-102); Mean Platelet Volume 11.9 FL (9.6-12.0); Monocytes % 7.4 % (1.7-12.7); Neutrophils % 89.1 % (38.7-73.9); Platelet Count 147 T/CUMM (130-400); Red Blood Count 4.04 MC/CUMM (3.8-5.5); White Blood Count 7.2 T/CUMM (4-12)
[2022-01-09] MEDS: SULFAMETH/TRIMETH INJ 200 MG in DEXTROSE 5% 250 ML IV SCH ×4 (03:46→20:32)
[2022-01-09] MEDS: metroNIDAZOLE INJ 500 MG/100 ML PREMIX IV SCH ×3 (03:46→18:23)
[2022-01-09 03:56] LABS: Albumin 2.4 G/DL (3.4-5.0); Bilirubin,Total 0.6 MG/DL (0.20-1.00); Calcium 8.3 MG/DL (8.5-10.1); Osmolality,Calculated 275.1 MOS/KG (273-304); Potassium 3.9 MMOL/L (3.5-5.1)
[2022-01-09 04:06] LABS: Band Neutrophils 1 % (0-10); Hypochromia 1+; Lymphocytes 2 % (20-55); Segmented Neutrophils 94 % (50-85); Total Cells Counted 100
[2022-01-09 04:07] LABS: Microcytosis 1+; Ovalocytes Few; Platelet Estimate Adequate; Target Cells Few
[2022-01-09 04:10] LABS: ABG Base Excess 2.5 MMOL/L (-2.5-2.5); ABG HCO3 26.6 MMOL/L (20-26); ABG Oxygen Saturation 98.8 % (95-100); ABG PCO2 36.5 MM HG (35-48); ABG PH 7.462 (7.35-7.45); ABG TCO2 23.3 MMOL/L (23-27)
[2022-01-09] MEDS: METOPROLOL TARTRATE 5 MG/5 ML VIAL IV SCH ×3 (06:02→17:41)
[2022-01-09] MEDS: VANCOMYCIN 50 MG/ML 60 ML/BOTTLE PER TUBE SCH ×4 (06:09→23:58)
[2022-01-09] MEDS: METOCLOPRAMIDE 10 MG/2 ML VIAL IV SCH ×4 (06:09→23:58)
[2022-01-09] MEDS: HYDROCORTISONE 100 MG VIAL IV SCH ×2 (07:51→20:31)
[2022-01-09] MEDS: FUROSEMIDE 20 MG/2 ML VIAL IV SCH (08:38)
[2022-01-09] MEDS: PANTOPRAZOLE 40 MG VIAL IV SCH (08:40)
[2022-01-09] MEDS: ACETAMINOPHEN INJ 1,000 MG/100 ML VIAL IV SCH ×3 (10:45→22:37)
[2022-01-09] MEDS: DOBUTamine 500 MG/250 ML PREMIX IV SCH (11:25)
[2022-01-09] MEDS: FAT EMULSION 20% 250 ML IV SCH (14:49)
[2022-01-09] MEDS: ZINC/COPPER/MANGANESE/SELENIUM 1 ML, MULTIVITAMIN INJ 10 ML in AMINO ACIDS/DEXT/LYTES 5... IV SCH (17:07)
[2022-01-09] MEDS: FONDAPARINUX 2.5 MG/0.5 ML SYRINGE SUBCUT SCH (20:32)
[2022-01-10] MEDS: METOPROLOL TARTRATE 5 MG/5 ML VIAL IV SCH ×4 (00:03→18:40)
[2022-01-10] MEDS: ALBUTEROL/IPRATROPIUM 3 ML NEB RESP TX SCH ×4 (00:40→19:10)
[2022-01-10] MEDS: SULFAMETH/TRIMETH INJ 200 MG in DEXTROSE 5% 250 ML IV SCH ×2 (03:11→09:46)
[2022-01-10] MEDS: metroNIDAZOLE INJ 500 MG/100 ML PREMIX IV SCH ×3 (03:11→18:40)
[2022-01-10 03:32] LABS: ABG Base Excess 2.1 MMOL/L (-2.5-2.5); ABG HCO3 26.3 MMOL/L (20-26); ABG Oxygen Saturation 98.2 % (95-100); ABG PCO2 32.1 MM HG (35-48); ABG PH 7.495 (7.35-7.45); ABG TCO2 21.7 MMOL/L (23-27)
[2022-01-10 03:53] LABS: Basophils % 0.4 % (0.0-0.8); Eosinophils # 0.1 10*3/uL (0.0-0.87); Eosinophils % 0.8 % (0.00-10.9); Hematocrit 36.7 VOL% (35.7-47.0); Hemoglobin 12.2 GM/DL (12.0-16.0); Immature Granulocytes % 0.8 %; Immature Granulocytes Absolute 0.06 #; Lymphocytes # 0.6 10*3/uL (1.4-4.0); Lymphocytes % 7.3 % (21.3-54.2); Mean Corpuscular HGB Conc 33.2 GM/DL (32-36); Mean Corpuscular Volume 79.6 FL (87-102); Mean Platelet Volume 12.4 FL (9.6-12.0); Monocytes % 6.8 % (1.7-12.7); Neutrophils % 83.9 % (38.7-73.9); Platelet Count 147 T/CUMM (130-400); Red Blood Count 4.61 MC/CUMM (3.8-5.5); Red Cell Distribution Width 15.9 % (9.3-17.3); White Blood Count 7.9 T/CUMM (4-12)
[2022-01-10 03:54] LABS: Albumin 2.5 G/DL (3.4-5.0); Bilirubin,Total 0.5 MG/DL (0.20-1.00); Calcium 8.4 MG/DL (8.5-10.1); Osmolality,Calculated 271.2 MOS/KG (273-304); Potassium 3.8 MMOL/L (3.5-5.1); Total Protein 6.3 G/DL (6.4-8.2)
[2022-01-10] MEDS: ACETAMINOPHEN INJ 1,000 MG/100 ML VIAL IV SCH ×2 (04:42→10:41)
[2022-01-10] MEDS: METOCLOPRAMIDE 10 MG/2 ML VIAL IV SCH ×3 (05:57→18:40)
[2022-01-10] MEDS: INSULIN REGULAR 100 UNIT/ML SUBCUT SCH ×3 (05:57→17:16)
[2022-01-10] MEDS: VANCOMYCIN 50 MG/ML 60 ML/BOTTLE PER TUBE SCH ×3 (05:58→18:40)
[2022-01-10] MEDS: PANTOPRAZOLE 40 MG VIAL IV SCH (09:10)
[2022-01-10] MEDS: HYDROCORTISONE 100 MG VIAL IV SCH (09:10)
[2022-01-10] MEDS: FUROSEMIDE 20 MG/2 ML VIAL IV SCH (09:11)
[2022-01-10] MEDS ORDERED: KETOROLAC 15 MG/1 ML VIAL IV PRN (10:47)
[2022-01-10] MEDS ORDERED: fentaNYL 100 MCG/2 ML VIAL IV PRN (11:00)
[2022-01-10] MEDS: DEXMEDETOMIDINE 200 MCG in SODIUM CHLORIDE 0.9% 48 ML IV PRN (13:49)
[2022-01-10] MEDS: DOBUTamine 500 MG/250 ML PREMIX IV SCH (14:06)
[2022-01-10] MEDS: COPPER IV SCH (16:39)
[2022-01-10] MEDS: SELENIUM IV SCH (16:39)
[2022-01-10] MEDS: ZINC IV SCH (16:39)
[2022-01-10] MEDS: [UNRECOGNIZED DRUG - OTHER] IV SCH (16:39)
[2022-01-10] MEDS: MANGANESE IV SCH (16:39)
[2022-01-10] MEDS: MULTIVITAMIN IV SCH (16:39)
[2022-01-10] MEDS: FONDAPARINUX 2.5 MG/0.5 ML SYRINGE SUBCUT SCH (21:30)
[2022-01-11] MEDS: ALBUTEROL/IPRATROPIUM 3 ML NEB RESP TX SCH ×4 (00:15→19:03)
[2022-01-11] MEDS: VANCOMYCIN 50 MG/ML 60 ML/BOTTLE PER TUBE SCH ×4 (00:28→18:03)
[2022-01-11] MEDS: METOCLOPRAMIDE 10 MG/2 ML VIAL IV SCH ×5 (00:32→23:25)
[2022-01-11] MEDS: INSULIN REGULAR 100 UNIT/ML SUBCUT SCH ×5 (00:37→23:19)
[2022-01-11] MEDS: METOPROLOL TARTRATE 5 MG/5 ML VIAL IV SCH ×5 (01:07→23:20)
[2022-01-11] MEDS: DEXMEDETOMIDINE 200 MCG in SODIUM CHLORIDE 0.9% 48 ML IV PRN ×2 (02:00→17:50)
[2022-01-11] MEDS: metroNIDAZOLE INJ 500 MG/100 ML PREMIX IV SCH ×3 (03:29→18:03)
[2022-01-11 04:03] LABS: Basophils % 0.2 % (0.0-0.8); Eosinophils # 0.1 10*3/uL (0.0-0.87); Eosinophils % 0.9 % (0.00-10.9); Hematocrit 33.7 VOL% (35.7-47.0); Hemoglobin 11.2 GM/DL (12.0-16.0); Immature Granulocytes % 0.7 %; Immature Granulocytes Absolute 0.04 #; Lymphocytes # 0.5 10*3/uL (1.4-4.0); Lymphocytes % 8.3 % (21.3-54.2); Mean Corpuscular HGB Conc 33.2 GM/DL (32-36); Mean Corpuscular Volume 79.7 FL (87-102); Mean Platelet Volume 12.8 FL (9.6-12.0); Monocytes % 8.8 % (1.7-12.7); Neutrophils % 81.1 % (38.7-73.9); Platelet Count 134 T/CUMM (130-400); Red Blood Count 4.23 MC/CUMM (3.8-5.5); White Blood Count 5.8 T/CUMM (4-12)
[2022-01-11 04:15] LABS: Calcium 8.4 MG/DL (8.5-10.1); Osmolality,Calculated 273.2 MOS/KG (273-304); Potassium 4.3 MMOL/L (3.5-5.1)
[2022-01-11] MEDS: FAT EMULSION 20% 250 ML IV SCH (08:37)
[2022-01-11] MEDS: PANTOPRAZOLE 40 MG VIAL IV SCH (08:38)
[2022-01-11] MEDS: MANGANESE IV SCH (08:38)
[2022-01-11] MEDS: [UNRECOGNIZED DRUG - OTHER] IV SCH (08:38)
[2022-01-11] MEDS: COPPER IV SCH (08:38)
[2022-01-11] MEDS: SELENIUM IV SCH (08:38)
[2022-01-11] MEDS: MULTIVITAMIN IV SCH (08:38)
[2022-01-11] MEDS: ENOXAPARIN 60 MG/0.6 ML SYRINGE SUBCUT SCH ×2 (08:38→20:20)
[2022-01-11] MEDS: ZINC IV SCH (08:38)
[2022-01-11] MEDS: HYDROCORTISONE 100 MG VIAL IV SCH (08:39)
[2022-01-11] MEDS: FUROSEMIDE 20 MG/2 ML VIAL IV SCH (08:39)
[2022-01-11] MEDS: DOBUTamine 500 MG/250 ML PREMIX IV SCH (11:11)
[2022-01-11] MEDS ORDERED: MAGNESIUM SULF RIDER 2 GM/50 ML PREMIX IV ONE (15:51)
[2022-01-12] MEDS: DOBUTamine 500 MG/250 ML PREMIX IV SCH ×2 (00:21→12:22)
[2022-01-12] MEDS: SELENIUM IV SCH (00:23)
[2022-01-12] MEDS: ZINC IV SCH (00:23)
[2022-01-12] MEDS: MANGANESE IV SCH (00:23)
[2022-01-12] MEDS: COPPER IV SCH (00:23)
[2022-01-12] MEDS: MULTIVITAMIN IV SCH (00:23)
[2022-01-12] MEDS: [UNRECOGNIZED DRUG - OTHER] IV SCH (00:23)
[2022-01-12] MEDS: VANCOMYCIN 50 MG/ML 60 ML/BOTTLE PER TUBE SCH ×3 (00:24→12:21)
[2022-01-12] MEDS: ALBUTEROL/IPRATROPIUM 3 ML NEB RESP TX SCH ×3 (00:38→13:38)
[2022-01-12] MEDS: metroNIDAZOLE INJ 500 MG/100 ML PREMIX IV SCH ×2 (04:00→12:20)
[2022-01-12 04:42] LABS: Basophils % 0.2 % (0.0-0.8); Eosinophils # 0.2 10*3/uL (0.0-0.87); Eosinophils % 2.6 % (0.00-10.9); Hemoglobin 10.7 GM/DL (12.0-16.0); Immature Granulocytes % 0.9 %; Immature Granulocytes Absolute 0.05 #; Lymphocytes # 0.7 10*3/uL (1.4-4.0); Lymphocytes % 11.1 % (21.3-54.2); Mean Corpuscular HGB Conc 33.4 GM/DL (32-36); Mean Corpuscular Volume 78.4 FL (87-102); Mean Platelet Volume 12.3 FL (9.6-12.0); Monocytes % 11.4 % (1.7-12.7); Neutrophils % 73.8 % (38.7-73.9); Platelet Count 111 T/CUMM (130-400); Red Blood Count 4.08 MC/CUMM (3.8-5.5); Red Cell Distribution Width 16.2 % (9.3-17.3); White Blood Count 5.9 T/CUMM (4-12)
[2022-01-12 04:56] LABS: Albumin 2.2 G/DL (3.4-5.0); Bilirubin,Total 1.1 MG/DL (0.20-1.00); Calcium 8.1 MG/DL (8.5-10.1); Osmolality,Calculated 273.4 MOS/KG (273-304); Potassium 4.3 MMOL/L (3.5-5.1); Total Protein 5.8 G/DL (6.4-8.2)
[2022-01-12] MEDS: INSULIN REGULAR 100 UNIT/ML SUBCUT SCH ×2 (05:27→12:21)
[2022-01-12] MEDS: METOPROLOL TARTRATE 5 MG/5 ML VIAL IV SCH ×2 (06:15→12:00)
[2022-01-12] MEDS: METOCLOPRAMIDE 10 MG/2 ML VIAL IV SCH ×2 (06:16→12:21)
[2022-01-12] MEDS: FUROSEMIDE 20 MG/2 ML VIAL IV SCH (09:10)
[2022-01-12] MEDS: HYDROCORTISONE 100 MG VIAL IV SCH (09:27)
[2022-01-12] MEDS: ENOXAPARIN 60 MG/0.6 ML SYRINGE SUBCUT SCH (09:27)
[2022-01-12] MEDS: PANTOPRAZOLE 40 MG VIAL IV SCH (09:27)
[2022-01-12] MEDS: DEXMEDETOMIDINE 200 MCG in SODIUM CHLORIDE 0.9% 48 ML IV PRN (09:37)
== END 2022-01-12 14:15 | DRG 4 ==
LOC: N.ED 06:56 → SUATTDRO 11:39 → N.EDINP 11:39 → N.ICU 20:01
PROVIDERS: ADMIT Internal Medicine; ATTEND Family Medicine